=== PATIENT | male | born 1950 | race Caucasian/White ===

== ENCOUNTER → 2017-04-12 | Outpatient (CLI) | payer OTHER ==
[~2017-04-12] MED LIST: ACETAMINOPHEN325 M1 PO; ADULT LOW DOSE81 MG PO; AMARYL4 MG PO; AMBIEN 5 MG TABL5 M1 PO; ASPIR-TRIN325 MG PO; ATENOLOL 100MG100 MG PO; ATENOLOL 50MG T50 MG PO; AUGMENTIN 875875 MG PO; COREG6.25 MG PO; COZAAR 50 MG TA50 M1 PO; COZAAR 50 MG TA50 M2 PO; DULCOLAX5 MG PO; FLOMAX0.4 MG PO; HYDROCODONE-AP1 EAC6 PO; HYDROXYZINE HCL25 M1 PO; INSULIN; LOSARTAN-HCTZ1 EAC2; MAGNESIUM250 M1 PO; MELATONIN3 MG PO; METFORMIN HCL500 MG PO; MILK OF MA2400 MG/10 PO; NOVOLOG100 UNIT/1; PAXIL10 MG PO; RANITIDINE 150150 M1 PO; SIMVASTATIN40 MG PO; TOUJEO SOL300 UNIT/1 SQ; TOUJEO SOL300 UNIT/1 SUBQ; TRICOR145 MG PO; UNICOMPLEX M TA1 TA1 PO; ZOCOR 10 MG TAB10 MG PO
== END ==
LOC: M.RAD 10:55
DX: M51.34 Other intervertebral disc degeneration, thoracic region (principal); I65.23 Occlusion and stenosis of bilateral carotid arteries; I70.0 Atherosclerosis of aorta; M51.36 Other intervertebral disc degeneration, lumbar region

== ENCOUNTER → 2017-09-18 | Outpatient (CLI) | payer OTHER | LOC: M.RAD 13:26 | DX: R63.4 Abnormal weight loss (principal); R10.9 Unspecified abdominal pain; Z87.891 Personal history of nicotine dependence ==

== ENCOUNTER 2017-12-14 19:00 | Inpatient (IN) | payer OTHER ==
[~2017-12-14] VITALS: Ht 175.3 cm; Wt 101.7 kg
--- NOTE | ~2017-12-14 | PROC ---
[address] [address] PROCEDURE REPORT Name: JENNY RANKIN Room: [address] ADM IN M.R.#: [id number] Admission: 12/14/17 Attend Phys: Elda Abbott Discharge: Date of : 46 Report #: [id number] THIS REPORT FOR: //name// For GI report, please see the Provation report in Perceptive 7 content. By: 1004Medical Records Staff MEHDI /WINDY
[~2017-12-14 19:00] MED LIST changes: -ACETAMINOPHEN325 M1 PO; -ADULT LOW DOSE81 MG PO; -COREG6.25 MG PO; -COZAAR 50 MG TA50 M1 PO; -DULCOLAX5 MG PO; -HYDROCODONE-AP1 EAC6 PO; -MILK OF MA2400 MG/10 PO
[2017-12-14 19:09] VITALS: BP 103/61
[2017-12-14] MEDS ORDERED: METFORMIN HCL500 MG PO (19:15)
[2017-12-14 19:30] LABS: ABSOLUTE BASOPHILS 0.1 thou/uL (0.0-0.2); ABSOLUTE EOSINOPHILS 0.1 thou/uL (0.0-0.7); ABSOLUTE LYMPHOCYTES 1.2 thou/uL (0.8-5.3); ABSOLUTE MONOCYTES 0.6 thou/uL (0.0-1.2); ABSOLUTE NEUTROPHILS 4.6 thou/uL (1.6-8.1); EOSINOPHILS 1.4 %; HEMATOCRIT 20.5 % (42.0-52.0); LYMPHOCYTES 17.8 %; MCH 20.5 pg (26.0-34.0); MCV 66.2 fL (80.0-100.0); MONOCYTES 9.1 %; NUCLEATED RBCS 0 /100WBC; PLATELET COUNT* 174 thou/uL (150-400); POLYS 70.7 %; RDW-CV 18.9 % (10.5-14.5); WBC 6.5 thou/uL (4.0-11.0)
[2017-12-14 19:32] LABS: HEMOGLOBIN 6.4 gm/dL (14.0-18.0)
[2017-12-14 19:37] LABS: CALCIUM 8.3 mg/dL (8.5-10.1); CREATININE 1.5 mg/dL (0.6-1.3); POTASSIUM 4.7 mmol/L (3.5-5.1)
[2017-12-14 19:39] LABS: PROTIME 10.5 Seconds (9.20-11.50)
[2017-12-14 19:48] LABS: ALBUMIN 3.3 g/dL (3.4-5.0); TOTAL BILIRUBIN 0.3 mg/dL (<0.1-1.0); TOTAL PROTEIN 7.6 g/dL (6.4-8.2); TROPONIN-I LEVEL 0.07 ng/mL (<0.06)
[2017-12-14 19:51] LABS: PLATELET ESTIMATE ADEQUATE
[2017-12-14 19:52] LABS: ANISOCYTOSIS 2+; HYPOCHROMASIA 1+; MICROCYTES 3+
[2017-12-14 19:53] LABS: POLYCHROMASIA Occasional
[2017-12-14 21:28] LABS: % SATURATION 2 % (20-39); IRON 9 ug/dL (50-175)
[2017-12-14 22:10] VITALS: BP 108/63
[2017-12-14 22:30] VITALS: BP 100/65; BP 106/58; BP 119/70; BP 91/55; BP 99/65
[2017-12-15] VITALS (7 sets, daily range): BP systolic 12–128; BP diastolic 50–88
[2017-12-15 01:58] LABS: HEMATOCRIT 22.8 % (42.0-52.0); HEMOGLOBIN 7.1 gm/dL (14.0-18.0); MCH 21.4 pg (26.0-34.0); MCHC 31.2 g/dL (28.0-37.0); MCV 68.6 fL (80.0-100.0); MPV 10.6 fl. (7.2-11.1); RBC 3.33 mil/uL (4.50-6.00); RDW-CV 20.9 % (10.5-14.5); WBC 7.8 thou/uL (4.0-11.0)
[2017-12-15 02:21] LABS: ALBUMIN 3.4 g/dL (3.4-5.0); CALCIUM 8.5 mg/dL (8.5-10.1); CREATININE 1.6 mg/dL (0.6-1.3); POTASSIUM 4.9 mmol/L (3.5-5.1); TOTAL BILIRUBIN 0.4 mg/dL (<0.1-1.0); TOTAL PROTEIN 7.2 g/dL (6.4-8.2)
--- NOTE | 2017-12-15 07:55 | NUR ---
PT TO FLOOR APROX 2200 AND ASSUMED CARE. PT TO FLOOR WITH ORDER FOR BLOOD. REDRAW FOR BLOOD WAS CRITICAL. PROVIDER NOTIFIED NEW ORDERS RECIEVED. FIRST OF 2 BAGS OF BLOOD CURNTLY HANGING. VITALS WNL. SEE MAR. SEE CHARTING. FALL PRECAUTIONS IN PLACE. HOURLY ROUNDING FOR SAFETY.
--- NOTE | 2017-12-15 10:52 | NUR ---
RECEIVED REPORT FROM WILL AND ASSUMED CARE OF PT @ 8827.PT IS A/O,VSS,TRACING SR ON THE MONITOR.LUNG SOUNDS ARE CLEAR.LAST BM WAS TODAY.IV PATENT WITH BLOOD INFUSING PER ORDERS.PT IS CALM AND COOPERATIVE WITH NO C/O PAIN AT TIME OF ASSESSMENT.PT UP WITH SBA TO BATHROOM.LEFT RESTING IN BED WITH CALL LIGHT AND FALL PRECAUTIONS IN PLACE. WILL CONTINUE TO MONITOR.
--- NOTE | 2017-12-15 14:50 | NUR ---
MET WITH PT TO DISCUSS HOME SITUATION/DC PLANNING. PT LIVES , USES CANE AND IS INDEPENDENT AND ACTIVE. HE FOLLOWS WITH PCP DR CRUZ IN [place]. HASN'T HAD HH. VOICED THAT HE HAD CONSIDERED IT TO ASSIST WTIH HIS PILLS, BUT STATES CAN ASSIST HIM. DENIES DC NEEDS, HOPES TO GO HOME SOON.
--- NOTE | 2017-12-15 15:09 | EKG ---
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 : 1950 Requested By: Unique Palumbo Order Number: [id number] MD: Justus Acharya Measurements Intervals [place] Rate: 84 P: 53 DC: 153 QRS: 54 QRSD: 108 T: -33 QT: 378 QTc: 447 Interpretive Statements Sinus rhythm Inferior infarct, age indeterminate Compared to ECG 09/04/2016 20:06:42 No significant changes Electronically Signed On 12-15-2017 15:09:10 CDT by Justus Acharya [email or web address] <ELECTRONICALLY SIGNED> By: Kareem Acharya MD, [facility] 12/15/17 1509 15 15 Kareem Acharya MD, [facility] /EPI
--- NOTE | 2017-12-15 17:38 | NUR ---
VSS,CARDIAC MONITORING ON WITH NO CHANGES THIS SHIFT.PT RECEIVED UNIT OF BLOOD AND IV ANTIBIOTICS.NO C/O PAIN.PT TOLERATING HEART HEALTHY DIET.PT INFORMED OF PLAN OF CARE AND COMMUNICATES UNDERSTANDING.PT AMBULATED TO BATHROOM WITH ASSIST OF ONE.HOURLY ROUNDING COMPLETED FOR PT SAFETY.CALL LIGHT AND FALL PRECAUTIONS IN PLACE.WILL CONTINUE TO MONITOR FOR DURATION OF SHIFT.
[2017-12-16] VITALS (7 sets, daily range): BP systolic 89–154; BP diastolic 52–81
[2017-12-16 05:01] LABS: CHOLESTEROL 143 mg/dL (<200); HDL CHOLESTEROL 38 mg/dL (>40); LDL CHOLESTEROL 56 mg/dL (<100); NT-PRO BRAIN NAT PEPTIDE 1947 pg/mL (<300); TC:HDL 3.8 Ratio (Not establshd); TRIGLYCERIDE 249 mg/dL (<150); VLDL 50 mg/dL (<40)
[2017-12-16 05:04] LABS: SERUM ASSESSMENT Clear
--- NOTE | 2017-12-16 05:43 | NUR ---
ASSUMED CARE OF PT AFTER REPORT AT 1930. PT A&OX4. VSS. PHYSICAL ASSESSMENT COMPLETED AND CHARTED. PT ON RA WITH 96% O2 SAT. PT TRACING SR ON TELE. PT UP WITH 1 ASSIST TO TOILET. PT C/O OF DIFFICULTY OF BREATHING, CRACKLES & WHEEZING AUSCULTATED. PT STATED HE FEELS LIKE DROWNING- INFORMED DR NICE WITH NEW ORDERS. HOOKED TO O2 AT 3L WITH 94% O2 SAT. MEDS GIVEN PER MAY. HOURLY ROUNDING OBSERVED. CALL LIGHT WITHIN REACH. BED IN LOW POSITION.
--- NOTE | 2017-12-16 08:36 | NUR ---
RECEIVED REPORT FROM BALBIR AND ASSUMED CARE OF PT @ 4900.PT IS A/O,VSS,TRACING SR ON THE MONITOR.LUNG SOUNDS ARE COARSE.O2 @ 2L NC.LAST BM WAS YESTERDAY.IV PATENT WITH IV FLUIDS INFUSING PER ORDERS. PT IS CALM AND COOPERATIVE WITH NO C/O PAIN.UP WITH ONE ASSIST TO BATHROOM OR URINAL.PT LEFT RESTING ON EDGE OF BED WITH CALL LIGHT AND FALL PRECAUTIONS IN PLACE.WILL CONTINUE TO MONITOR.
--- NOTE | 2017-12-16 13:57 | EKG ---
[place] [address] ELECTROCARDIOGRAM REPORT Name: JENNY RANKIN Room: [address] ADM IN M.R.#: [id number] Admission: 12/14/17 Attend Phys: Elda Abbott Discharge: Date of : 46 Report #: [id number] THIS REPORT FOR: //name// 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 : 1950 Requested By: Kareem Acharya Order Number: [id number] Reading MD: Justus Acharya Measurements Intervals [place] Rate: 84 P: 65 IA: 160 QRS: 79 QRSD: 107 T: -34 QT: 380 QTc: 450 Interpretive Statements Sinus rhythm Nonspecific repol abnormality, diffuse leads Compared to ECG 12/14/2017 19:16:51 Early repolarization now present Myocardial infarct finding no longer present Electronically Signed On 12-16-2017 13:57:09 CDT by Justus Acharya [email or web address] <ELECTRONICALLY SIGNED> By: Kareem Acharya MD, [facility] 12/16/17 1357 1305 1305 Kareem Acharya MD, [facility] /EPI
--- NOTE | 2017-12-16 13:58 | EKG ---
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
--- NOTE | 2017-12-16 17:49 | NUR ---
VSS,CARDIAC MONITORING IN PLACE RUNNING SR WITH APCS.DR DALTON ON FLOOR AT TIME OF DISCOVER AND ASSESSED RHYTHM.NEW ORDERS FOR BREATHING TREATMENTS TO BE CHANGED.PT REMAINS ON 3L O2 NC.NO C/O PAIN.IF ANTIBIOTICS GIVEN.NPO AT MIDNIGHT FOR STRESS IN AM.PT INFORMED OF PLAN OF CARE AND COMMUNICATES UNDERSTANDING.PT SHOWERED IN BIG SHOWER ROOM.ISOLATION MAINTAINED.CDIFF PENDING.HOURLY ROUNDING COMPLETED FOR PT SAFETY.CALL LIGHT AND FALL PRECAUTIONS IN PLACE.WILL CONTINUE TO MONITOR.
[2017-12-17 04:00] VITALS: BP 102/50
--- NOTE | 2017-12-17 05:18 | NUR ---
ASSUMED CARE OF PT AFTER REPORT AT 1930. VSS. PHYSICAL ASSESSMENT COMPLETED AND CHARTED. PT ON NC AT 3L WITH 99% O2 SAT. PT TRACING SR/AFIB ON TELE. PT UP STANDBY ASSIST TO TOILET. PT INSTRUCTED ON NPO FOR STRESS TEST TODAY. COMMUNICATES UNDERSTANDING. C. DIFF RESULT CAME NEGATIVE. HOURLY ROUNDING OBSERVED. CALL LIGHT WITHIN REACH.
--- NOTE | 2017-12-17 08:15 | NUR ---
PT RESTING IN BED, APPEARS ALERT O X 4M DENIES CHEST PAIN, SOB, STATES SOME CHRONIC BLE NEUROPATHY PAIM , PT IS NPO FOR CARDIOLOGY STRESS TEST
[2017-12-17 08:16] VITALS: BP 124/67
[2017-12-17 12:00] VITALS: BP 117/60
[2017-12-17 16:00] VITALS: BP 123/58
--- NOTE | 2017-12-17 16:13 | EKG ---
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: [facility] : 1950 Requested By: Jarret Russell Order Number: [id number] MD: Jenny Ann Measurements Intervals [place] Rate: 86 P: OR: QRS: 53 QRSD: 108 T: -23 QT: 386 QTc: 462 Interpretive Statements Atrial fibrillation Inferior infarct, age indeterminate Compared to ECG 12/15/2017 13:10:08 Sinus rhythm no longer present Myocardial infarct finding still present Electronically Signed On 12-17-2017 16:12:58 CDT by Jenny Ann [email or web address] <ELECTRONICALLY SIGNED> By: Jenny Ann MD, FAC 12/17/17 1612 1842 184 Jenny Ann MD, [facility] /EPI
--- NOTE | 2017-12-17 17:21 | 2DMMODE ---
[place] [address] 2 D/M-MODE ECHOCARDIOGRAM Name: JENNY RANKIN Room: [address] IN [facility].#: [id number] Admission: 12/14/17 Attend Phys: Jarret Russell Discharge: Date of : 46 Date of Service: 12/17/17 1641 Report #: [id number] THIS REPORT FOR: //name// APPROVED REPORT Study performed: 12/17/2017 15:41:39 EXAM: Comprehensive 2D, Doppler, and color-flow Echocardiogram Patient Location: In-Patient Room #: [facility] Status: routine BSA: 2.12 HR: 83 bpm BP: 124/67 mmHg Other Information Study Quality: Good Indications Dyspnea 2D Dimensions IVSd: 13.85 (7-11mm) LVOT Diam: 20.27 (18-24mm) LVDd: 50.00 mm PWd: 11.67 (7-11mm) Ascending Ao: 33.02 (22-36mm) LVDs: 27.91 (25-40mm) Aortic Root: 27.81 mm Volumes Left Atrial Volume (Systole) LA ESV Index: 16.80 mL/m2 Aortic Valve AoV Peak Moo.: 1.71 m/s AO Peak Gr.: 11.71 mmHg LVOT Max P.69 mmHg AO Mean Gr.: 6.58 mmHg LVOT Mean P.40 mmHg LVOT Max V: 1.19 m/s AO V2 VTI: 26.36 cm LVOT Mean V: 0.69 m/s SANDRA (VTI): 2.67 cm2 LVOT V1 VTI: 21.81 cm Mitral Valve E/A Ratio: 1.10 MV Decel. Time: 167.83 ms MV E Max Moo.: 0.76 m/s MV PHT: 48.67 [place] [address] 2 D/M-MODE ECHOCARDIOGRAM Name: JENNY RANKIN Room: [address] IN .R.#: [id number] Admission: 12/14/17 Attend Phys: Jarret Russell Discharge: Date of : 46 Date of Service: 12/17/17 1641 Report #: [id number] MVA (PHT): 4.52 cm2 TDI E/Lateral E': 6.33 E/Medial E': 9.50 Medial E' Moo.: 0.08 m/s Lateral E' Moo.: 0.12 m/s Pulmonary Valve PV Peak Moo.: 1.04 m/s PV Peak Gr.: 4.34 mmHg Tricuspid Valve RAP Estimate: 5.00 mmHg TR Peak Gr.: 25.23 mmHg RVSP: 30.23 mmHg PA Pressure: 30.23 mmHg Left Ventricle The left ventricle is normal size. There is normal LV segmental wall motion. Mild concentric left ventricular hypertrophy. Left ventricular systolic function is normal. The left ventricular ejection fraction is within the normal range. LVEF is 60-65%. The left ventricular diastolic function is normal. Right Ventricle The right ventricle is normal size. The right ventricular systolic function is normal. Atria The left atrium size is normal. The right atrium size is normal. Aortic Valve Mild aortic valve sclerosis. No aortic regurgitation is present. There is no aortic valvular stenosis. Mitral Valve The mitral valve is normal in structure. Trace mitral regurgitation. No evidence of mitral valve stenosis. Tricuspid Valve The tricuspid valve is normal in structure. Mild tricuspid regurgitation. Pulmonic Valve The pulmonary valve is normal in structure. [place] [address] 2 D/M-MODE ECHOCARDIOGRAM Name: JENNY RANKIN Room: [address]#: [id number] Admission: 12/14/17 Attend Phys: Jarret Russell Discharge: Date of : 46 Date of Service: 12/17/17 1641 Report #: [id number] Great Vessels The aortic root is normal in size. IVC is normal in size and collapses >50% with inspiration. Pericardium There is no pericardial effusion. <Conclusion> Mild concentric left ventricular hypertrophy. Left ventricular systolic function is normal. The left ventricular ejection fraction is within the normal range. LVEF is 60-65%. The right ventricle is normal size. The left atrium size is normal. Mild aortic valve sclerosis. No aortic regurgitation is present. There is no aortic valvular stenosis. The mitral valve is normal in structure. Trace mitral regurgitation. The tricuspid valve is normal in structure. IVC is normal in size and collapses >50% with inspiration. There is no pericardial effusion. There is normal LV segmental wall motion. The left ventricle is normal size. <ELECTRONICALLY SIGNED> By: Jenny Ann MD, FACC 12/17/171640 40 40 Jenny Ann MD, FACC /INF
--- NOTE | 2017-12-17 17:51 | CARDNUC ---
[place] [address] CARDIAC NUCLEAR IMAGING REPORT Name: JENNY RANKIN Room: [address] IN [facility]#: [id number] Admission: 12/14/17 Attend Phys: Jarret Russell Discharge: Date of : 46 Date of Service: 12/17/17 1751 Report #: [id number] THIS REPORT FOR: //name// APPROVED REPORT Study performed: 12/15/2017 12:39:00 Indication: Dyspnea, , Fatigue Patient Location: In-Patient Room #: [facility] Stress Tech: Rafaela Owens Stress Nurse: Elizabeth Maravilla RN Ht: 5 ft 9 in Wt: 213 lbs BSA: 2.12 m2 BMI: 31.45 Medical History Medical History: [place], CAD, PCI, , Fatigue, SOB, HTN, Hyperlipidemia, Diabetes Medications: LOSARTAN, ASA 81 MG, ATORVASTATIN, ATENOLOL Allergies: No known drug allergies Cardiac Risk Factors: Age, HTN, Hyperlipidemia, DM, Past Smoker, FHX of CAD Previous Cardiac Procedures: PCI, Myocardial infarction Pretest Chest Pain Characteristics: No chest pain Exercise History: Sedentary Physical Disabilities: Legs, Back Meds Held (24 hrs): ATENOLOL Resting Data Rest SPECT myocardial perfusion imaging was performed in supine position 45 minutes following the intravenous injection of 11.1 mCi of Tc-99m Sestamibi. Time of rest injection: 1000 Date: 12/17/2017 Administration Route: IV Administration Site: Right AC Pharmacologic Stress Pharmacologic stress test was performed by injecting Regadenoson 0.4 mg IV push over 10-15 seconds immediately followed by the intravenous injection of 35.4 mCi of Tc-99m Sestamibi. Time of stress injection: 1150 Date: 12/17/2017 Administration Route: IV Administration Site: Right AC Gated Stress SPECT was performed 45 [place] [address] CARDIAC NUCLEAR IMAGING REPORT Name: JENNY RAKNIN Room: [address]#: [id number] Admission: 12/14/17 Attend Phys: Jarret Russell Discharge: Date of : 46 Date of Service: 12/17/17 175 Report #: [id number]. The images were gated to evaluate regional wall motion and calculate left ventricular ejection fraction. Stress Test Details Stress Test: Pharmacologic stress testing performed using 0.4 mg of regadenoson per 5 mL given IV over 10 seconds. Reason for pharmacologic stress test: physical limitation. HR Max Heart Rate (APMHR): 151 bpm Resting HR: 79 bpm Target HR (85% APMHR): 128 bpm Max HR Achieved: 96 bpm % of APMHR: 63 Recovery HR: 92 bpm BP Resting BP: 124/70 mmHg Recovery BP: 127/66 mmHg ECG Resting ECG: Sinus Rhythm, nonspecific ST-T abnormalities Stress ECG: Sinus Rhythm, nonspecific ST-T abnormalities ST Change: None Arrhythmia: None Recovery ECG: Sinus Rhythm, nonspecific ST-T abnormalities Recovery ST Change: None Recovery Arrhythmia: None Clinical Reason for Termination: Completed protocol Stress Symptoms: Dizziness, Nausea, Weakness Exercise duration: 0 min 0 sec Exercise capacity: 1.00 METs Patient had mild atypical symptoms with Lexiscan infusion. No worrisome symptoms to suggest angina. Nurse Comments PATIENT STATED HE WAS NOT ABLE TO WALK ON TREADMILL R/T GENERALIZED WEAKNESS, BACK AND LEG PROBLEMS, UNSTEADY ON FEET. PATIENT TOLERATED SITTING STRESS WELL REPORTING MILD NAUSEA AND LIGHTHEADEDNESS WHICH WAS RESOLVED WITH CAFFEINE. PT ASSISTED TO AND FROM WHEELCHAIR WITH IV POLE AND FLUIDS. PT STABLE AT END OF TEST [place] [address] CARDIAC NUCLEAR IMAGING REPORT Name: JENNY RANKIN Room: [address] IN [facility]#: [id number] Admission: 12/14/17 Attend Phys: Jarret Russell Discharge: Date of : 46 Date of Service: 12/17/17 1751 Report #: [id number] Stress ECG Conclusion The baseline 12-lead EKG shows sinus rhythm with some inverted T waves in the inferior leads. No significant ST segment deviations were noted. EKGs obtained during and post Lexiscan stress show no significant ST or T wave changes when compared baseline. There were no stress-induced arrhythmias. Study Quality Study: Good Artifact: No artifact Study Data At rest, the left ventricular ejection fraction was 64%.. Post stress, the left ventricular ejection was 68%.. TID = 0.87. Perfusion Perfusion images show a moderate size severe intensity fixed defect involving the basal to mid inferior wall consistent with prior infarct. No reversible defects were identified. Wall Motion There is akinesis of the basal portion of the inferior wall. Overall left ventricular systolic function is fairly well-preserved. Nuclear Conclusion ECG Findings: negative for ischemia Clinical Findings: negative for ischemia Nuclear Findings: negative for ischemia Exercise Capacity: not assessed Left Ventricular Function: preserved Risk Study: low Myocardial perfusion images show evidence of prior inferior wall infarct with no inducible ischemia. Overall left ventricular systolic function is fairly well-preserved. This is a low risk study. <Conclusion> The baseline 12-lead EKG shows sinus rhythm with some inverted T waves in the inferior leads. No significant ST segment deviations were noted. EKGs obtained during and post Lexiscan stress show no significant ST or T wave changes when compared baseline. There were no stress-induced arrhythmias. <ELECTRONICALLY SIGNED> By: Ethan Bloom MD, FACC 12/17/171750 50 50 Ethan Bloom MD, FACC /INF
--- NOTE | 2017-12-17 18:24 | NUR ---
pt resting in bed, without C/O, pt had cardiac stress test ,, magnesium replaced, remains o x 4. denies chest pain, SOB, pain or discomfort
[2017-12-17 20:00] VITALS: BP 122/67
[2017-12-18] VITALS (7 sets, daily range): BP systolic 104–132; BP diastolic 51–102
--- NOTE | 2017-12-18 05:11 | NUR ---
ASSUMED CARE OF PT AFTER REPORT AT 1930. PT A&OX4. VS. PHYSICAL ASSESSMENT COMPLETED AND CHARTED. PT ON RA WITH 94% O2 SAT . PT TRACING SR ON TELE. PT UP STANDBY ASSIST. INSTRUCTED ON NPO EXCEPT MEDS WITH SIPS OF LIQUID ORDERED. COMMUNICATES UNDERSTANDING. DENIES ANY PAIN OR DISCOMFORT. MEDS GIVEN PER MAR. HOURLY ROUNDING OBSERVED. CALL LIGHT WITHIN REACH.
[2017-12-18 05:23] LABS: ABSOLUTE EOSINOPHILS 0.2 thou/uL (0.0-0.7); ABSOLUTE LYMPHOCYTES 1.3 thou/uL (0.8-5.3); ABSOLUTE MONOCYTES 0.6 thou/uL (0.0-1.2); ABSOLUTE NEUTROPHILS 2.9 thou/uL (1.6-8.1); BASOPHILS 0.9 %; EOSINOPHILS 3.3 %; HEMATOCRIT 25.3 % (42.0-52.0); LYMPHOCYTES 26.4 %; MCH 22.5 pg (26.0-34.0); MCHC 31.8 g/dL (28.0-37.0); MCV 70.7 fL (80.0-100.0); MONOCYTES 12.5 %; MPV 9.6 fl. (7.2-11.1); NUCLEATED RBCS 0 /100WBC; PLATELET COUNT* 128 thou/uL (150-400); POLYS 56.9 %; RBC 3.57 mil/uL (4.50-6.00); RDW-CV 22.5 % (10.5-14.5); WBC 5.1 thou/uL (4.0-11.0)
[2017-12-18 05:40] LABS: CALCIUM 8.5 mg/dL (8.5-10.1); CREATININE 1.3 mg/dL (0.6-1.3); POTASSIUM 4.4 mmol/L (3.5-5.1)
[2017-12-18 06:01] LABS: PLATELET ESTIMATE DECREASED
[2017-12-18 06:02] LABS: ANISOCYTOSIS 1+; HYPOCHROMASIA 2+; MICROCYTES 1+; OVALOCYTES 1+; POLYCHROMASIA 1+
[2017-12-18 06:03] LABS: POIKILOCYTOSIS 1+
[2017-12-18 13:48] LABS: HEMATOCRIT 26.5 % (42.0-52.0); HEMOGLOBIN 8.3 gm/dL (14.0-18.0); MCH 22.2 pg (26.0-34.0); MCHC 31.4 g/dL (28.0-37.0); MCV 70.8 fL (80.0-100.0); MPV 8.7 fl. (7.2-11.1); RBC 3.74 mil/uL (4.50-6.00); RDW-CV 22.6 % (10.5-14.5); WBC 4.6 thou/uL (4.0-11.0)
--- NOTE | 2017-12-18 19:00 | NUR ---
PT HAS BEGUN BOWEL PREP FOR COLONOSCOPY IN AM.
[2017-12-19] VITALS (7 sets, daily range): BP systolic 121–156; BP diastolic 62–89
--- NOTE | 2017-12-19 04:52 | NUR ---
ASSUMED CARE OF PT AFTER REPORT AT 1930. PT A&OX4. VSS. PHYSICAL ASSESSMENT COMPLETED AND CHARTED. PT ON RA WITH 99% O2 SAT. PT TRACING SR ON TELE. PT UP ADLIB TO TOILET. DENIES ANY PAIN OR DISCOMFORT. INSTRUCTED NPO POST MIDNIGHT FOR EGD & COLONOSCOPY. COMMUNICATES UNDERSTANDING. HOURLY ROUNDING OBSERVED. CALL LIGHT WITHIN REACH. BED IN LOW POSITION.
--- NOTE | 2017-12-19 19:07 | NUR ---
NEW IV STARTED IN R FA AFTER PREVIOUS IV BEGAN LEAKING. PT AGREEABLE TO MOST INTERVENTIONS. PT AT TIMES ANGRY AND DEMANDING. PT DENIES PAIN. TOLERATED DIET WITHOUT C/O. NO S/S BLEEDING TODAY. PT ABLE TO MAKE NEEDS KNOWN, CALL LIGHT IN REACH
[2017-12-20] VITALS: BP 128/52
[2017-12-20 04:00] VITALS: BP 129/54
[2017-12-20 05:00] LABS: HEMATOCRIT 24.8 % (42.0-52.0); MCH 22.3 pg (26.0-34.0); MCHC 32.1 g/dL (28.0-37.0); MCV 69.5 fL (80.0-100.0); MPV 8.6 fl. (7.2-11.1); RBC 3.57 mil/uL (4.50-6.00); RDW-CV 22.6 % (10.5-14.5); WBC 5.6 thou/uL (4.0-11.0)
[2017-12-20 05:07] LABS: ALBUMIN 2.9 g/dL (3.4-5.0); CALCIUM 8.6 mg/dL (8.5-10.1); MAGNESIUM 1.6 mg/dL (1.8-2.4); PHOSPHORUS* 3.7 mg/dL (2.5-4.9); POTASSIUM 3.8 mmol/L (3.5-5.1); TOTAL BILIRUBIN 0.2 mg/dL (<0.1-1.0); TOTAL PROTEIN 6.4 g/dL (6.4-8.2)
--- NOTE | 2017-12-20 05:51 | NUR ---
ASSUMED CARE OF PT AFTER REPORT AT 1930. PT A&OX4. VSS. PHYSICAL ASSESMENT COMPLETED AND CHARTED. PT ON RA WITH 95% O2 SAT. PT TRACING SR ON TELE. PT UP ADLIB TO TOILET. INSTRUCTED NPO POST MIDNIGHT FOR SCHEDULED XRAY BARIUM ENEMA. COMMUNICATES UNDERSTANDING. DENIES ANY PAIN OR DISCOMFORT. MAGNESIUM IS 1.6. MEDS GIVEN PER ELECTROLYTE PROTOCOL. CALL LIGHT WITHIN REACH. BED IN LOW POSITION.
[2017-12-20 08:55] VITALS: BP 126/75
--- NOTE | 2017-12-20 11:35 | NUR ---
SOCIAL SECURITY SPECIALIST SPOKE TO THE PATIENT TO DISCUSS DISCHARGE PLANNING NEEDS. PAIENT INFORMS THAT HE STILL PLANS TO RETURN HOME AT D/C, AND IS STILL UNSURE IF HE WILL NEED HH. NURSING INFORMS THAT PATIENT MAY HAVE SURGERY TOMORROW PENDING THE RESULTS OF THE BARIUM EMEMA. CM WILL REMAIN AVIALABLE TO ASSIST AND FOLLOW NEEDED.
[2017-12-20 12:59] VITALS: BP 129/71
--- NOTE | 2017-12-20 14:44 | CON ---
[address] [address] CONSULTATION Name: JENNY RANKIN Room: [address] ADM IN M.R.#: [id number] Admission: 12/14/17 Attend Phys: Elda Abbott Discharge: Date of : 46 Report #: [id number] THIS REPORT FOR: //name// CC: Manolo Brown MD FAM physician/PCP Jarret Russell DATE OF SERVICE: 12/15/2017 REFERRING PHYSICIAN: Jarret Russell MD REASON FOR CONSULTATION: Severe anemia. IMPRESSION: 1. Iron deficient anemia of uncertain etiology - evaluate upper and lower gastrointestinal tract sources for the same. 2. Shortness of breath with associated right lower lobe pneumonia. 3. Coronary artery disease with previous stents being placed in the past with a need for further evaluation. 4. Elevated troponin, likely related to anemia and demand from the same. RECOMMENDATIONS: 1. Before proceeding with any endoscopic studies, the patient needs to complete his cardiovascular evaluation including his stress echo and stress test, echocardiogram, etc, scheduled on Sunday. 2. If cardiovascular evaluation is okay or intervention is going to need with cardiac catheterization with possible stent placement and potentially the possibility of beginning on a blood thinner, he will need to proceed with upper and lower endoscopy to risk stratify him his ability to be on the same. 3. We will coordinate the patient's evaluation with cardiology and likely these studies will be done on Sunday if okay with cardiology. 4. We will hold off beginning on any form of oral iron replacement at this time until after his endoscopic studies have been performed, as they were interfering with the adequacy of the bowel preparation and can mimic melena. I have discussed these plans with the patient as well and he is agreeable to the same. HISTORY OF PRESENT ILLNESS: The patient is a pleasant 67-year-old white male with history of coronary artery disease and diabetes who was admitted to the hospital because of problems with shortness of breath and the like. He was found to have hemoglobin on admission of only 6.4 with microcytic indices. He denies any complaints of any dysphagia, odynophagia, postprandial pain or any major problem with his bowels or bowel frequency. He does have occasional left lower quadrant pain. He denies any black stools or tarry stools. He has not had any bleeding. He has undergone previous studies of his upper or lower GI tract in the past. He says he has history of gastric ulcer, but does not recall ever having an endoscopy or an upper GI series and [place] [address] CONSULTATION Name: MASSIELJENNY Abril Room: [address] IN [facility]#: [id number] Admission: 12/14/17 Attend Phys: Elda Abbott Discharge: Date of : 46 Report #: [id number] he had an ulcer. He has been maintained on chronic ranitidine for the same. He was admitted to hospital and has received a total of 3 units of packed red cells for symptomatic anemia and hemoglobin of 6.4. He denies taking any nonsteroidals whatsoever and only takes Tylenol. He is not on any blood thinners except for a baby aspirin for his heart. ALLERGIES: None. MEDICATIONS: Insulin, losartan/hydrochlorothiazide, metformin, atenolol, aspirin, ranitidine, and zolpidem. PAST MEDICAL HISTORY: Hypertension, coronary artery disease with previous stent placement back in the , history of hernia surgery, and back surgery as well. SOCIAL HISTORY: The patient does not smoke, previously smoked. Does not drink alcohol. FAMILY HISTORY: Negative for GI malignancy. PHYSICAL EXAMINATION: GENERAL: Revealed pleasant, pale 67-year-old gentleman who is awake and alert. CARDIOPULMONARY EXAMINATION: Revealed a regular rate and rhythm. LUNGS: Clear. ABDOMEN: Soft, not particularly tender. I cannot appreciate any organomegaly or masses. LABORATORY TESTS: From admission revealed a white count of 6.5, hemoglobin 6.4, platelet count 174,000. His MCV is 66.2 and RDW is 18.9. Differential is normal. Sodium 130, potassium 4.7, chloride 96, bicarbonate is 22, BUN is 24, creatinine 1.5 for GFR of 46. His blood sugar is 394. Total bilirubin 0.3, alkaline phosphatase is 65, AST is 11, ALT 14. His albumin is 3.3. Iron saturation is 2%, ferritin is 5. His B12 level is 619. DISCUSSION: At the present time, the patient has severe anemia with a baseline hemoglobin from August of last year, which revealed a hemoglobin of 14.2 with normocytic indices. His GFR at that time was only 43. He does have some element of chronic kidney disease. We will wait for cardiovascular evaluation [address] [address] CONSULTATION Name: JENNY RANKIN Room: [address] IN M.R.#: [id number] Admission: 12/14/17 Attend Phys: Elda Abbott Discharge: Date of : 46 Report #: [id number] to be completed and make room and proceed with endoscopic studies of his upper or lower GI tract while in the hospital. <ELECTRONICALLY SIGNED> By: Isaías Rizvi DO 12/20/17 [id number] Rizvi DO /nt
[2017-12-20 15:30] VITALS: BP 126/64
--- NOTE | 2017-12-20 18:25 | NUR ---
ASSESSMENT COMPLETED REFER TO COMPUTER CHARTING. BEAM SAW OPERATOR TRACKING SR. PATIENT RESTING IN BED AND REPORTING NO PAIN, NAUSEA OR SHORTNESS OF BREATH. BED IN LOW AND LOCKED POSITION. CALL LIGHT WITHIN REACH. IV FLUIDS INFUSING. FAMILY AT BEDSIDE. WILL CONTINUE TO MONITOR THIS SHIFT.
[2017-12-20 20:00] VITALS: BP 144/76
[2017-12-21] VITALS (8 sets, daily range): BP systolic 128–148; BP diastolic 63–77
--- NOTE | 2017-12-21 04:46 | NUR ---
ASSUMED CARE OF PT AFTER REPORT AT 1930. PT A&OX4. VSS. PHYSICAL ASSESSMENT COMPLETED AND CHARTED. PT ON RA WITH 95% O2 SAT. PT TRACING SR ON TELE. PT UP ADLIB TO TOILET. MAINTAINED ON NPO FOR SCHEDULED SURGERY TODAY. DENIES ANY PAIN, SOA OR DISCOMFORT. HOULRY ROUNDING OBSERVED. CALL LIGHT WITHIN REACH. BED IN LOW POSITION. BED ALARM ON.
[2017-12-21 09:47] LABS: HEMATOCRIT 26.3 % (42.0-52.0); HEMOGLOBIN 8.4 gm/dL (14.0-18.0); MCH 22.7 pg (26.0-34.0); MCHC 31.9 g/dL (28.0-37.0); MCV 71.3 fL (80.0-100.0); MPV 8.9 fl. (7.2-11.1); RBC 3.69 mil/uL (4.50-6.00); RDW-CV 23.6 % (10.5-14.5); WBC 3.6 thou/uL (4.0-11.0)
[2017-12-21 10:05] LABS: CALCIUM 8.9 mg/dL (8.5-10.1); POTASSIUM 3.8 mmol/L (3.5-5.1)
--- NOTE | 2017-12-21 10:34 | NUR ---
PT OFF UNIT TO OR.
--- NOTE | 2017-12-21 13:35 | NUR ---
Nutrition: Pt assessed for LOS. In surgery today for transverse colectomy. Has GI bleed. H/o PA, DM. Will remain NPO for now. Labs: BG 168, alb 2.9, Hgb 8.4. Wt: 214#. Will follow POC. Will follow diet order and po tolerance. Will follow up 12/24/17.
[2017-12-21 18:44] LABS: MAGNESIUM 1.3 mg/dL (1.8-2.4); PHOSPHORUS* 4.4 mg/dL (2.5-4.9)
--- NOTE | 2017-12-21 18:51 | NUR ---
PT RETURN TO ROOM 7. REPORT GIVEN AT BEDSIDE BY LITA NEVAREZ. PT HAS LAP SITES X 4 WITH ABDOM[address]AL BINER IN PLACE. IMPLANTED PRORT LEFT SUBCLAVIAN HAS DRESSING COVERING SITE. FORBES IS IN PLACE DRAINING CLEAR YELLOW URINE. PT REMAINS ON 3L NC. WILL GIVE REPORT TO SOCIAL STAFF WORKER SHORTLY.
[2017-12-22 00:02] VITALS: BP 119/64
--- NOTE | 2017-12-22 04:41 | NUR ---
Assumed care of patient at 1930. Full assessment completed and documented; hourly rounding performed for patient safety. Patient rested well throughout the night. 4 lap sites and abdominal binder intact. Patient's pain well controlled through PRN medications. All VSS. Patient remains on 3L NC. IVL infusing through right wrist IV. Left subclavian port dressing intact, no drainage noted. Leyva catheter patent; clear yellow urine noted. Patient tolerating clear liquids well. Fall precautions in place, bed alarm on at all times. Call light within patient's reach. Will continue to monitor.
[2017-12-22 05:00] VITALS: BP 111/68
[2017-12-22 05:34] LABS: ABSOLUTE BASOPHILS 0.1 thou/uL (0.0-0.2); ABSOLUTE LYMPHOCYTES 0.8 thou/uL (0.8-5.3); ABSOLUTE MONOCYTES 0.7 thou/uL (0.0-1.2); ABSOLUTE NEUTROPHILS 5.3 thou/uL (1.6-8.1); BASOPHILS 0.8 %; EOSINOPHILS 0.3 %; HEMOGLOBIN 7.5 gm/dL (14.0-18.0); LYMPHOCYTES 12.3 %; MCH 22.8 pg (26.0-34.0); MCHC 31.3 g/dL (28.0-37.0); MCV 72.8 fL (80.0-100.0); MONOCYTES 9.7 %; MPV 9.4 fl. (7.2-11.1); NUCLEATED RBCS 0 /100WBC; PLATELET COUNT* 114 thou/uL (150-400); POLYS 76.9 %; RDW-CV 23.1 % (10.5-14.5); WBC 6.9 thou/uL (4.0-11.0)
[2017-12-22 05:52] LABS: ALBUMIN 2.7 g/dL (3.4-5.0); CALCIUM 8.4 mg/dL (8.5-10.1); CREATININE 1.1 mg/dL (0.6-1.3); POTASSIUM 4.5 mmol/L (3.5-5.1); TOTAL BILIRUBIN 0.4 mg/dL (<0.1-1.0); TOTAL PROTEIN 6.1 g/dL (6.4-8.2)
[2017-12-22 08:10] VITALS: BP 119/71
--- NOTE | 2017-12-22 08:15 | NUR ---
ASSUMED CARE OF PATIENT AT 0730 AFTER REC'G REPORT FROM NOC RN. PT MOANING WITH MOVEMENT YET STATES HIS PAIN IS 7/10. PRN PAIN MED GIVEN PER MAY. PT A&oX4, ABLE TO COMMUNICATE NEEDS TO STAFF. ABDOMINAL BINDER IN PLACE. MED/SURG STATUS. ACTIVE BS, STATES HE IS PASSING FLATUS. SCD'S IN PLACE. CALL LIGHT IN REACH. ENCOURAGED INCENTIVE SPIROMETER, PT VOICED UNDERSTANDING OF RATIONALE FOR SPIROMETER.
--- NOTE | 2017-12-22 09:00 | NUR ---
OFFERED PT SELF-CARE BATH OR SHOWER. PT REFUSED STATING "I DON'T THINK SO. I JUST HURT SO BAD." PAIN MANAGEMENT GOALS DISCUSSED WITH PATIENT. WILL OFFER BATH OR SHOWER LATER IN SHIFT.
[2017-12-22 11:35] VITALS: BP 114/56
--- NOTE | 2017-12-22 11:56 | NUR ---
PT CALLED FOR ASSISTANCE. PT STATES "I FEEL LIKE I'M NOT GETTING ANY OXYGEN THROUGH THIS" POINTING TO HIS O2 TUBING. O2 IS SET AT 1L/MIN NC. O2 SAT CHECKED, 94%. REPOSITIONED PATIENT WITH ASSISTANCE OF DARION NIETO. PT STATES HE FEELS MORE COMFORTABLE NOW.
[2017-12-22 14:42] LABS: URINE BILIRUBIN NEGATIVE (Negative); URINE BLOOD 1+ (Negative); URINE CLARITY CLEAR; URINE COLOR YELLOW; URINE GLUCOSE-RANDOM 1+ (Negative); URINE KETONES NEGATIVE (Negative); URINE LEUKOCYTES-REFLEX 1+ (Negative); URINE NITRITE-REFLEX NEGATIVE (Negative); URINE PROTEIN TRACE (Negative); URINE UROBILINOGEN 0.2 E.U./dl (0.2-1.0)
[2017-12-22 14:57] LABS: BACTERIA-REFLEX 1-9 Few /HPF (None Seen); CASTS None Seen /LPF (None Seen); CRYSTALS None Seen /LPF (None Seen); SQUAMOUS 0-3 Few /LPF (0-3); URINE RBC 3-10 Few /HPF (0-2); URINE WBC-REFLEX 6-15 Few /HPF (0-5)
[2017-12-22 16:00] VITALS: BP 119/68
--- NOTE | 2017-12-22 18:55 | NUR ---
WENT TO ROOM FOR KITCHENHAND. REPOSITIONED PATIENT. BARRIER CREAM APPLIED TO GLUTEAL FOLDS FOR SMALL AREA OF BLANCHABLE, REDDENED SKIN. COMMUNICATED TO FLIGHT TECHNICIAN'S AND NOC RN THAT PT WILL NEED Q2 TURN UNTIL UP OOB CONSISTENTLY. PT PAIN BETTER CONTROLLED THIS EVENING. PT STATES PAIN IS 3/10 UPON REASSESSMENT THIS EVENING.
[2017-12-22 20:00] VITALS: BP 111/58
--- NOTE | 2017-12-22 22:22 | NUR ---
DOCTOR FULLBRIGHT NOTIFIED OF PATIENT TEMP., SEE ORDERS. ASKED DOCTOR ABOUT DC OF ANRDEI, DOCTOR TOLD NURSE TO WAIT TO DAY, SEE WHAT'S SURGERY SAY REGARDING THE MATTER.
[2017-12-23] VITALS: BP 105/64
[2017-12-23 07:45] VITALS: BP 137/56
--- NOTE | 2017-12-23 11:38 | EKG ---
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 : [id number] Requested By: Boy Driver Order Number: [id number] Dioni MD: Abilio Park Measurements Intervals [place] Rate: 109 P: AL: QRS: 56 QRSD: 106 T: 250 QT: 330 QTc: 445 Interpretive Statements Atrial fibrillation Inferoposterior infarct, recent Lateral leads are also involved Compared to ECG 12/16/2017 18:42:30 No significant changes Electronically Signed On 12-23-2017 11:38:08 CDT by Abilio Park [email or web address] <ELECTRONICALLY SIGNED> By: Abilio Park MD, [facility] 12/23/17 1138 [id number] Abilio Park MD, [facility] /EPI
[2017-12-23 12:00] VITALS: BP 96/63
[2017-12-23 15:51] VITALS: BP 126/74
--- NOTE | 2017-12-23 16:27 | NUR ---
ASSUMED PT CARE AT 0730, FULL ASSESMENT DONE CHARTED. PT A/O X4, ANXIOUS AT TIMES, PT IRRITABLE ABOUT BEING PLACED ON THE TELE MONITOR, EDUCATED ON REASON WHY, PT AFIB ON THE MONITOR THIS SHIFT. PT C/O PAIN IN LEFT SIDE OF ABDOMEN, BINDER IN PLACE, DRESSINGS TO ABD C/D/I, PTS BOTTOM RED WITH "SPLIT" IN THE CREASE OF THE BOTTOM. BARRIOR CREAM APPLIED. PT VERY WEAK, ASSIST OF 2 TO CHAIR, SAT IN CHAIR SEVERAL HOURS THIS AFTERNOON. BM THIS AFTERNNON WAS LOOSE, DARK AND HAD MUCUS WITH UNDIGESTED PILLS. NOTIFIED. MAG REPLACED, WAITING ON REDRAW RESULTS, PT TOLERATED CLEAR LIQUID DIET, STARTED ON FULL LIQUIDS. PT USES CALL LIGHT APPROPRIATLY, FALL PRECAUTIONS IN PLACE. WILL CONTINUE WITH PLAN OF CARE.
[2017-12-23 20:00] VITALS: BP 113/67
[2017-12-24] VITALS (7 sets, daily range): BP systolic 100–181; BP diastolic 57–81
--- NOTE | 2017-12-24 05:13 | NUR ---
PATIENT HAD MUTIPLE BOWEL MOVEMENTS THAT WERE LIQUID. PATIENT WAS ABLE TO USE BED SIDE COMMODE WITH ASSIST TIMES TWO. PATIENT WAS WEAK AND FATIGUED FROM MOVEMENT. DOCTOR CALLED REGARDING PATIENT'S HEART RATE, SEE ORDERS. FALL PRECAUTIONS IN PLACE, CALL LIGHT WITH IN REACH, HOURLY ROUNDING OBSERVED, BED ALARM ON. PATIENT DID NOT SHOW SIGNS OF DISTRESS, NO ACUTE CHANGES. PATIENT IS RESTING IN BED.
--- NOTE | 2017-12-24 10:39 | NUR ---
Nutrition: follow up note. Diet advanced to Full Liquids and pt is tolerating. Labs: alb 2.2, prealb 12.8, K+ 5.2, Na 131, BG 186. Wt is fluctuating 214-220#. Loose BMs. Mild risk. GOALS: continue advancing diet to Soft/Fiber Restricted, as tolerated.
--- NOTE | 2017-12-24 14:51 | NUR ---
Pt reports still feeling weak, Pt to work with therapy. Goal continues to be to return home at nm. CM following.
--- NOTE | 2017-12-24 18:14 | NUR ---
PT CARE ASSSUMED AT 0730. ALERT AND ORIENTED X4. SATURATION MAINTED AT 2L OF OXYGEN. CALL LIGHT WITHIN REACH. FALL PRECAUTIONS MAINTAINED. AFIB WITH PVCS RUNNING ON SAMPLE PATTERNMAKER. HAD BOWEL MOVEMENT. IV SITE CHANGED, 20G FOR CT PA. WILL CONTINUE TO MONITOR. TOLERATED SOFT DIET, NO NAUSEA STATED. DRESSING C/D/I. PT BOTTOM RED, BARRIER CREAM APPLIED. SAT ON BEDSIDE CHAIR FOR A WHILE. WILL CONTINUE TO MONITOR
--- NOTE | 2017-12-24 19:02 | NUR ---
THIS RN REVIEWED AND AGREES WITH THE CHARTING OF SARINA NEVAREZ.
--- NOTE | 2017-12-24 19:39 | NUR ---
PT AOX4. SATURATION MAINTAINED IN RA, 94%. HAD TWO PERIODS OF LOOSE STOOL. NO CHEST PAIN AND SOB. SPOUSE PRESENT AT BEDSIDE. PROGRESSING TOWARDS GOAL. SOFT DIET TOLERATED, NO NAUSEA. IV SITE CHANGED FO CTPA. DRESSING C/D/I. UP WITH ASSIST X 2 AND WALKER. AFIB WITH PVCS IN OUTSIDE SALESPERSON. PINK AREA NOTED AT BOTTOM WITH TEAR NEAR CREASE,
[2017-12-25] VITALS (7 sets, daily range): BP systolic 120–144; BP diastolic 68–88
[2017-12-25 05:08] LABS: ABSOLUTE BASOPHILS 0.1 thou/uL (0.0-0.2); ABSOLUTE EOSINOPHILS 0.2 thou/uL (0.0-0.7); ABSOLUTE LYMPHOCYTES 0.8 thou/uL (0.8-5.3); ABSOLUTE MONOCYTES 0.5 thou/uL (0.0-1.2); ABSOLUTE NEUTROPHILS 3.4 thou/uL (1.6-8.1); EOSINOPHILS 4.6 %; HEMOGLOBIN 7.5 gm/dL (14.0-18.0); LYMPHOCYTES 15.4 %; MCH 22.6 pg (26.0-34.0); MONOCYTES 10.4 %; MPV 9.5 fl. (7.2-11.1); NUCLEATED RBCS 0 /100WBC; PLATELET COUNT* 107 thou/uL (150-400); POLYS 68.6 %; RBC 3.29 mil/uL (4.50-6.00); RDW-CV 23.7 % (10.5-14.5); WBC 4.9 thou/uL (4.0-11.0)
[2017-12-25 05:17] LABS: CALCIUM 8.4 mg/dL (8.5-10.1); CREATININE 0.9 mg/dL (0.6-1.3); POTASSIUM 3.8 mmol/L (3.5-5.1)
--- NOTE | 2017-12-25 06:50 | NUR ---
PATIENT RESTED IN BED, NO ACUTE CHANGES. PATIENT DID NOT SHOW SIGNS OF DISTRESS. FALL PRECAUTIONS IN PLACE, CALL LIGHT WITH IN REACH, HOURLY ROUNDING OBSERVED.
--- NOTE | 2017-12-25 14:12 | NUR ---
TITLE SEARCH MANAGER SPOKE TO THE PATIENT AND SPOUSE TO DISCUSS SKILLED AT D/C. PATIENT AND SPOUSE IN AGREEMENT AND INFORM THAT THEY WOULD LIKE A SNF LIST. D/C CREATIVE STRATEGIST TO PROVIDE PATIENT WITH A SNF LIST, AND FOLLOW-UP WITH THE PATIENT TO DISCUSS DECISION. CM WILL REMAIN AVAILABLE TO ASSIST AND FOLLOW NEEDED.
--- NOTE | 2017-12-25 14:20 | NUR ---
PT CARE ASSUMED AT 0730. ALERT AND ORIENTED X4. SATURATION MAINTAINED IIN RA. CALL LIGHT WITHIN REACH AND FALL PRECAUTIONS MAINTAINED. AFLUTTER WITH BBB WITH PVCS RUNNING ON TELE MONITOR. DENIES SOB. STATES PAIN IN ABDOMEN, DEBNIES PAIN MEDICATION. ABDOMEN INCISION C/D/I. SAT ON BEDSIDE CHAIR FOR MOST OF THE TIME. WILL CONTINUE TO MONITOR.
--- NOTE | 2017-12-25 15:50 | NUR ---
Pt requested to speak with CM, CM faxed referral to [facility] [place] per Pt's request. Isabella from [facility] to home and meet with Pt tomorrow at noon. Following.
--- NOTE | 2017-12-25 17:21 | OP ---
[address] [address] OPERATIVE REPORT Name: JENNY RANKIN Room: [address] IN M.R.#: [id number] Admission: 12/14/17 Attend Phys: Elda Abbott Discharge: Date of : 46 Report #: [id number] THIS REPORT FOR: //name// CC: Manolo Tuvaluan Jarret Russell DICTATED BY: Dhruv Fernández DO DATE OF SERVICE: 12/21/2017 PREOPERATIVE DIAGNOSES: Transverse colon mass and need for chemo port placement. POSTOPERATIVE DIAGNOSES: Transverse colon mass and need for chemo port placement. SURGEON: Pippa Manuel DO. SENIOR PHARMACY TECHNICIAN: Alexsander Fernández, PGY4 and Jonas Zuniga, PGY2. OPERATION PERFORMED: Laparoscopic transverse colectomy and primary anastomosis and takedown of splenic flexure as well as placement of left internal jugular chemo port using ultrasound and fluoroscopy guidance. ANESTHESIA TYPE: General and local. ESTIMATED BLOOD LOSS: 50 mL. SPECIMEN REMOVED: Transverse colon mass. COMPLICATIONS: None. INDICATION FOR PROCEDURE: The patient is a pleasant 67-year-old male who presented to the Emergency Room recently for abdominal pain. He was thoroughly evaluated and had a CAT scan that showed the patient had a palpable transverse colon mass. He was seen for consultation and it was recommended the patient have a colonoscopy. Upon colonoscopy, the patient did have a what appeared to be an obstructing colon mass that was tattooed near the splenic flexure. GI was rather unsure of exact location of the mass, so we decided to obtain a barium enema to further evaluate the stricture as well as location. It appeared the patient did have a completely obstructing transverse colon mass just proximal to the splenic flexure. We decided to take the patient for a laparoscopic transverse colectomy with potential possible open and possible ostomy placement. Hematology/Oncology saw the patient and recommended that he have a chemo port placement for postoperative adjuvant chemotherapy. We agreed to place a chemo port after we completed the surgery for [place] [address] OPERATIVE REPORT Name: JENNY RANKIN Room: [address] IN ..#: [id number] Admission: 12/14/17 Attend Phys: Elda Abbott Discharge: Date of : 46 Report #: [id number] patient was consented for both and all details of the procedure were reviewed at length with the patient and his family. They voiced complete understanding and wished to proceed. DESCRIPTION OF PROCEDURE: After the appropriate consents were obtained, the patient was taken to operating room, laid in supine position. He had SCDs placed on his bilateral lower extremities and a safety belt placed across his lap. A footboard was placed at the end of the bed and the patient had all lines placed by Anesthesia. His abdomen as well as his left neck were shaved prior to the start of the procedure. His abdomen was then prepped and draped in a standard sterile fashion. We performed a timeout to correctly identify the patient and procedure. We elected to do the transverse colectomy first before proceeding to our chemo port placement. We decided to start with a supraumbilical Imladys placement. We injected the skin locally using 0.5% Marcaine. Perioperative antibiotics were given prior to incision. We used an 11-blade scalpel to make a supraumbilical incision and then carried subcutaneous tissue down to encounter the anterior abdominal fascia. Once the fascia was encountered, it was grasped and elevated with 2 Breana clamps. The fascia was then incised using electrocautery. We entered the abdominal cavity bluntly using a hemostat. We used a finger to sweep the incision to ensure there were no ayah-incisional adhesions, none were present. We placed 0 Vicryl suture on either side of the fascia to act as stay sutures for Miladys trocar. We then introduced the Miladys into the abdomen and it was insufflated to 15 mmHg. We introduced the camera into the patient's abdomen and he had some adhesions to the left anterior abdominal wall with the omentum, but these were minimal. We then elected to place 2 more right-sided abdominal ports, which were 5-mm ports placed under direct visualization. Using Cliffwood graspers, we started by displacing the omentum superiorly and we had the patient placed in a head down position and tilted to the right. Once we positioned the omentum superiorly, this allowed us to view our transverse colon. There did appear to be a tattoo on the antimesenteric border of the colon, which was just proximal to the splenic flexure. We started by taking down the omentum to the transverse colon using the LigaSure device. This was carried out until all the omentum was removed from the superior aspect of the transverse colon. We did enter the lesser sac and were able to remove the attachments to the stomach as well from the transverse colon. We carried our dissection laterally until we encountered the splenic flexure. The splenic flexure was taken down again using blunt dissection as well as a LigaSure device. We, at which point, elevated our transverse colon and identified the mesentery. The mesentery was scored using electrocautery and we it bluntly as well as using the LigaSure device once again. We made a window bluntly through the mesentery just posterior to the colon until we reached the other side. Once we had a clear Path to the other side of the colon, we were able to ask for our Endo-MARQUES stapler. We elected to use a 60-mm purple load Endo-MARQUES. The stapler was introduced through the supraumbilical port and removed our camera to one of the right-sided lateral abdominal ports. We introduced the stapler into the [place] [address] OPERATIVE REPORT Name: JENNY RANKIN Room: [address] IN [facility].#: [id number] Admission: 12/14/17 Attend Phys: Elda Abbott Discharge: Date of : 46 Report #: [id number] it across the colon just distal to the tattoo with at least 5 cm distal to the colon that appeared to be healthy tissue. We were able to completely transect the colon with small remainder of omentum left that was taken down using the LigaSure device. It was at this point, we were able to elevate our colon and transect our mesentery. We did come across our middle colic artery, which was skeletonized and taken using a 45-mm nguyen load Endo-MARQUES stapler. There did not appear to be any bleeding from the stump of the middle colic artery. At this time, we used the LigaSure device once again to take down the remainder of our mesentery until we were able to free up enough colon. Then, we were pleased with our dissection. We did have to take down the ligament of Treitz during our dissection of the mesentery and we ensured that the jejunum was adequately below our dissection and we played a closed mine to the stomach, which was just posterior to our colon and made sure to stay well away from both these structures. After we were pleased with the dissection and our colon pulled over rather nicely to our distal staple line, we did have to free up some more along the left pericolic gutter along the white line of Toldt to free up the distal end of our transection. It was at this time, we decided to make a transverse incision over the left upper abdomen. We made an incision after placing local anesthetic under the skin and subcutaneous tissue using a 15-blade scalpel. This was carried down through the subcutaneous tissue until we encountered the anterior abdominal wall fascia. The fascia was then incised and the muscle was split with its fibers. We then grasped the peritoneum using hemostats and incised it using Metzenbaum scissors. This allowed us to enter the abdominal cavity. We then placed Malvin wound protector and the abdominal cavity to protect our wound. We had placed 2 Babcocks on either side of the colon prior to allowing the abdomen to desufflate. Using Cliffwood grasper, we were able to grasp the colon and extracted from the abdominal cavity. We started by extracting the proximal end of our dissection, which had our colon mass in it. We were able to extract the mass from the incision that we had made after we extended the incision some along the peritoneum and the fascia. The mass came out with ease after this was performed. We then transected proximally on the mesh using 2 separate 60-mm purple load Endo-MARQUES staplers. It was at this time, we made our common enterotomy between the 2 ends of the transverse colon. We started by identifying our tinea along the transverse colon and grasped it between Allis clamps. The colon was then incised using Metzenbaum scissors and any fluid that was coming from the colon was suctioned cleanly away. There was some bleeding from both the staple lines, which reassured us that we had adequate blood flow to our staple lines. After both enterotomies were made, we then passed the 60-mm Endo-MARQUES stapler once again down either side of the transverse colon along the tinea. This allowed us to make a common enterotomy between our anastomosis. We inspected our anastomosis and prior to firing a stapler, we did ensure that there were no structures that snuck between either sides of the colon. We also placed 2 crotch sutures of 3-0 silk suture on either side of the transverse colon to align our planned anastomosis site. After our common enterotomy was made, we inspected it internally and appeared to be patent and there [place] [address] OPERATIVE REPORT Name: JENNY RANKIN Room: [address] IN .R.#: [id number] Admission: 12/14/17 Attend Phys: Elda Abbott Discharge: Date of : 46 Report #: [id number] bleeding inside the transverse colon. We then decided to close our common enterotomy using suture. A silk suture was ran along the enterotomy in a whipstitch fashion. We then oversewed our suture using Lambert sutures in interrupted fashion. We did test the area for leaks and none were apparent. The anastomosis appeared to be pink and viable at the completion of our closure of our common enterotomy. We did irrigate this area after this was done and suctioned away any free fluid. At this time, we placed a cap on the Malvin port and allowed our anastomosis to return in the intra-abdominal cavity. Using the supraumbilical port site, we reattached insufflation and allowed the patient's abdomen to reinsufflate to 15 mmHg. We again inspected our anastomosis, it did not appear to be bleeding at any point. We then decided to inspect the remainder of the abdomen and did not appear to be bleeding from any sites. The patient did have an obvious liver lesion that was on the left lobe of the liver and a picture was taken of this area. There did not appear any other abnormalities that were seen. We then returned the omentum to its anatomical position and covered our anastomosis with omentum from the inferior as well as the superior aspect of our transverse colon. The stomach appeared to be intact and there did not appear to be any injuries to this area. The spleen remained very viable and pink and we allowed the patient's abdomen to desufflate. At this time, we removed our previously placed two 5-mm right abdominal port sites under direct visualization. There were no obvious bleeding from either of the port sites. We removed the camera after the patient's abdomen was completely desufflated and then removed the Malvin port site as well. We started by closing the peritoneum of the left upper abdomen transverse abdominal incision. This was done in a running fashion using 0 Vicryl suture. We then closed the anterior abdominal wall fascia being very careful not to entrap any of the muscle. This was done using [id number] 0 Vicryl sutures. Once we were pleased with our approximation, we then closed the subcutaneous tissue using a 3-0 Vicryl in inverted interrupted fashion. The skin was closed using a running 4-0 Monocryl suture in a subcuticular fashion. The patient's supraumbilical port site was closed between 2 Breana clamps using 0 Vicryl suture in a [id number] fashion. The subcutaneous tissue here was also closed using a 3-0 Vicryl suture in an inverted interrupted fashion. The skin was closed using inverted interrupted 4-0 Monocryl sutures. The 2 right-sided lateral abdominal port sites were closed using a 4-0 Monocryl suture in an inverted interrupted fashion. Each of the port sites was injected with 0.5% Marcaine for local anesthesia. The patient's abdomen was then cleaned and dried adequately. Mastisol, Steri-Strips, and sterile gauze and Tegaderm Op-Site were placed over each of the incision sites. We then performed our final count and passed off our specimen to be sent to pathology for further evaluation. Our counts were correct x 2 at the end of this procedure. Dr. Manuel was present and scrubbed the entirety of this procedure. It was at this time, [place] [address] OPERATIVE REPORT Name: JENNY RANKIN Room: [address] IN [facility].#: [id number] Admission: 12/14/17 Attend Phys: Elda Abbott Discharge: Date of : 46 Report #: [id number] drapes and proceed with our chemo port placement. This was the completion of our laparoscopic transverse colectomy. <ELECTRONICALLY SIGNED> By: Pippa Manuel DO 12/25/17 1721 1749 1955Cgiovanni Manuel DO /nt
--- NOTE | 2017-12-25 17:21 | OP ---
[address] [address] OPERATIVE REPORT Name: JENNY RANKIN Room: [address] IN M.R.#: [id number] Admission: 12/14/17 Attend Phys: Elda Abbott Discharge: Date of : 46 Report #: [id number] THIS REPORT FOR: //name// CC: Amnolo Kevin Russell DICTATED BY: Dhruv Fernández DO DATE OF SERVICE: 12/21/2017 PREOPERATIVE DIAGNOSES: Transverse colon mass and need for chemo port placement. POSTOPERATIVE DIAGNOSES: Transverse colon mass and need for chemo port placement. SURGEON: Pippa Manuel DO COSURGEONS: Alexsander Fernández, PGY-4 and Jonas Zuniga, PGY-2. OPERATION: Placement of left IJ chemo port using ultrasound and fluoroscopy guidance. ANESTHESIA TYPE: General and local. ESTIMATED BLOOD LOSS: 20 mL. SPECIMENS REMOVED: None. COMPLICATIONS: None. COMMENTS: This is a adequately placed left IJ chemo port using ultrasound and fluoroscopy to confirm our placement. DESCRIPTION OF PROCEDURE: After the appropriate consents were obtained, the patient was taken to the operating room, laid in a supine position. We had previously performed our laparoscopic transverse colectomy. The patient was already sedated and intubated at this time. We had removed all the drapes and changed our gowns and gloves at this time. The patient's left neck was prepped and draped in a standard sterile fashion. A separate timeout was performed to correctly identify the patient and procedure. Perioperative antibiotics were redosed at this time given the length of the time we used to perform the laparoscopic transverse colectomy. We started with some 0.5% Marcaine at the patient's left neck after we identified the left internal jugular vein. The patient was placed in head down position at this time. Then, using a Seldinger needle, we were able to access the vein on a single [place]. [place] [address] OPERATIVE REPORT Name: JENNY RANKIN Room: [address] IN [facility].#: [id number] Admission: 12/14/17 Attend Phys: Elda Abbott Discharge: Date of : 46 Report #: [id number] passed through the needle without any difficulty. At this time, we allowed the C-arm to come in and confirm our placement. The wire appeared to be crossing from the left side of the patient's neck across midline to the right atriocaval junction. We backed the C-arm out. The wire was then secured to the drape using a hemostat and we made our pocket for our chemo port in the patient's left lateral superior chest. We first used local anesthetic to anesthetize the area and then a 15 blade scalpel was used to make our incision. The patient's incision was carried down using electrocautery through the subcutaneous tissue until we encountered our anterior pectoralis fascia. A finger was used to bluntly sweep and make our pocket for chemo port. The chemo port was then placed in position to ensure that pocket was adequately large enough and it was. The chemo port was then placed in a safe position and safe place at this time and removed from the pocket. We then proceeded with placement of our catheter. The dilator was passed over the wire after we made a nicking incision using a 11 blade scalpel at the skin where the wire was going in to the left internal jugular vein. We passed the dilator with ease. It was at this time, we removed the internal sheath along with the wire. We placed a finger over the sheath and then we passed our catheter, which was previously flushed. The catheter was placed with ease and once we were down to around approximately 25-27 cm, we removed the sheath by breaking it away. We then brought in the C-arm once again to confirm the placement of the catheter. The catheter was pulled it back under fluoroscopy guidance until we reached the atriocaval junction. It was at this time, we used our tunneler to pass to our pocket that we had previously made. This was done from the insertion site of the catheter down to our pocket at the infraclavicular region. This was done over the clavicle just beneath the subcutaneous tissue of the skin. This was done with ease as well. The catheter was then attached to the tunneler and passed through the tract that was made previously. A catheter fell into place nicely. We once again confirmed our placement with fluoroscopy guidance and there did not appear to be any kinks in the catheter and it was still sitting well within the atriocaval junction. We then secured our chemo port to the anterior pectoralis fascia using a 3-0 Prolene suture. We did not tie the sutures down yet, we decided then to place our catheter to our chemo port. This was done using the previously provided securing plastic device at the tip of the catheter. This was placed easily on the tip of the chemo port. We then placed a chemo port within the pocket and once again confirmed our placement using fluoroscopy and appeared to be in adequate position once again. We then tied down our Prolene sutures to secure our catheter to our anterior pectoralis fascia. The catheter was then flushed using normal saline and it paul back with good flash of blood and then flushed easily and then after this, we then flushed the catheter with heparin solution. The subcutaneous tissue was reapproximated using 3-0 Vicryl suture in an inverted interrupted fashion. The skin was closed using a running Monocryl suture in a subcuticular fashion. The patient's skin was then dried adequately and cleaned as well. We did close the insertion site at the patient's left neck using a 4-0 Monocryl suture as well. We did take very careful caution not to injure our catheter. Once [place] [address] OPERATIVE REPORT Name: JENNY RANKIN Room: [address] IN [facility].#: [id number] Admission: 12/14/17 Attend Phys: Elda Abbott Discharge: Date of : 46 Report #: [id number] left-sided chest were cleaned and dried adequately, I then placed Mastisol and Steri-Strips along this incision site. We then placed gauze and a sterile Tegaderm, OpSite over this area. The patient tolerated the procedure well and he was allowed to return to supine position. The patient was then allowed to awaken in the operating room, at which point, he was transported to the PACU where he will be allowed to recover further. I then transported to his room. All counts were correct x 2 at the end of this procedure. Dr. Manuel was present and scrubbed for the entirety of this procedure. <ELECTRONICALLY SIGNED> By: Pippa Manuel DO 12/25/17 1721 1800 [id number] Manuel DO /nt
--- NOTE | 2017-12-25 19:06 | NUR ---
PT ALERT AND ORIENTED X4. SATURATION MAINTAINED IN RA. PT STATED PAIN IN HIS ABDOMEN, PRN HYDROCODONE GIVEN. SAT ON BEDSIDE CHAIR FOR MOST OF THE TIME. HAS REDNESS IN THE BUTTOCK AREA WITH TEAR NEAR THE SACRUM, BARRIER CREAM APPLIED. RUNNING AFLUTTER /BBB/PVCS IN MONITOR.
--- NOTE | 2017-12-25 19:45 | NUR ---
THIS RN HAS REVIWED AND AGREES WITH THE CHARTING OF SARINA NEVAREZ
[2017-12-26 00:59] VITALS: BP 143/75
--- NOTE | 2017-12-26 03:15 | NUR ---
met with with patient regarding bladder scan results; nurse explained the results of the bladder scan an estimation of greater than 999 ml of urine in his bladder; nurse stated multiple concerns infection, bladder rupture and even ; nurse requested to strait cath the pt; the pt refused stating "no you aren't doing that. They are kicking me out tomorrow I'll be fine"; nurse expressed this is an acute problem that the dr will not discharge pt until it is resolved; pt still refused; this information was reported to Dr Lizama via [facility]; Orders received to increase flomax to 0.4mg po BID, and consult urology; pt received dose of flomax now; this nurse explained the plan and the consult; pt stated "there wasn't any urine because I didn't drink much and the food is terrible"; the nurse reviewed again the bladder scan results; the patient changed subjects stating "I haven't been walked. The food is terrible and that is the problem"; the nurse validated his complaints and asked what could she do for him now; pt refused walk, food stated "I just want to be left the fuck alone"; pt vitals obtained, call light within reach and reported this to pts ROQUE Reeves.
[2017-12-26 03:57] VITALS: BP 160/88
--- NOTE | 2017-12-26 04:33 | NUR ---
ASSUMED CARE AT 1930, PT IS A&OX4, PT IA TRACING NSR ON THGE MONITOR, ON RA SATTING MID TO HIGH 90'S. PT C/O GAS TROUBLES. PRN MEDICATION ORDERED, WHEN GIVING PT MEDICATION HE SAID HE " NO LONGER NEEDS IT" PRN PAIN MEDICATIONS GIVEN PER MAR. PT HAS FOUR LAP SITES TO ABD, LAP SITES CDI. ABD BINDER NOT IN PLACE. PT HAD NOT VOIDED FOR THIS RN THIS SHIFT, THIS RN BLADDER SCANNED PT, BLADDER SCAN SHOWED GREATER THAN 999MLS PT EDUCATED ON THE NEED TO VOID PT STATES "I DON'T HAVE TO PEE" PT AMBULATED TO THE BR TO VOID, PT ONLY VOIDED 300 MLS. ONCE BACK IN BED BLADDER SCAN WAS COMPLETED AGAIN, PT'S BLADDER STILL READS 999MLS. PT GIVEN EDUCATION ON NEED FOR A CATHETER DUE TO RETENTION AND THE DANGERS OF HIS BLADDER GETTING TOO FULL OF URINE. PT STATES "YOU WILL NOT PUT ANOTHER CATHETER IN ME" "FUCK THIS" "I AM LEAVING IN THE MORNING" "i HAVE BEEN PEEING ALL DAY" THIS RN TOLD PATIENT SHE WOULD PAGE THE SAP BODS DEVELOPER PHYSICIAN, AND HAVE THE ENVIRONMENTAL ADVISOR COME TALK TO HIM. NEW ORDERS RECIEVED. PT STILL REFUSING CATHETER. BED IN LOW POSITION, CALL LIGHT IN REACH, BED ALARM ON, YELLOW ARM BAND AND SOCKS IN PLACE. HOURLY ROUDNING COMPLETED FOR PT REJI.
[2017-12-26 08:31] VITALS: BP 155/75
--- NOTE | 2017-12-26 09:57 | NUR ---
PT REFUSES PLACEMENT OF FORBES OR STRAIGHT CATHETER RELATED TO RETENTION. PT AGREED TO ATTEMPTING TO VOID Q2H AND NOTIFYING NURSE OF OUTPUT. BLADDER SCANS HAVE SHOWED >999ML. PT IRRITABLE THIS AM, IGNORING NURSE AT TIMES. WITH MANY QUESTIONS ABOUT DC AND REHAB CENTERS, REFERRED TO CM.
--- NOTE | 2017-12-26 11:08 | PATH ---
[address] [address] PATHOLOGY RPT PROCEDURE Name: JENNY RANKIN Room: [address] IN M.R.#: [id number] Admission: 12/14/17 Date of : 46 Discharge: Report #: [id number] Path Case #: [id number] [facility] Accession Number: [id number] . 01 Material submitted: . PART A: DUODENAL BIOPSY PART B: SIGMOID COLON MASS BIOPSY . 01 Clinical history: . Anemia, fecal occult blood . 02 Diagnosis: A. Duodenal biopsy: - Normal duodenal/small intestinal mucosa. . B. Sigmoid colon mass biopsy: - TUBULAR ADENOMA WITH FOCAL HIGH-GRADE DYSPLASIA. SEE COMMENT. (ELEUTERIO:masood; 12/20/2017) QMS/12/20/2017 . 02 Comment: Specimen B reviewed with Dr. Michell Cook, who agrees with the diagnosis. Fabi in Dr. Baker's office notified at approximately 0955 on 12/21/2017. 12/20/2017. . (ELEUTERIO:[facility]; 12/20/2017) . 02 Electronically signed: . Elier Ireland MD, Pathologist NPI- [id number] . 01 Gross description: . A. Received in formalin labeled "Jenny Rankin, duodenal biopsy, rule out celiac disease," are 4 segments of zavala soft tissue measuring 1.5 x 0.6 x 0.3 cm in aggregate dimensions and ranging from 0.4 to 0.6 cm in maximum dimension. The specimen is submitted entirely in cassette A1. . B. Received in formalin labeled "Jenny Rankin, sigmoid colon mass biopsy," are 3 segments of zavala soft tissue measuring 0.9 x 0.6 x 0.3 cm in aggregate dimensions and ranging from 0.3 to 0.4 cm in maximum dimension. The specimen is submitted entirely in cassette B1. (TSD; 12/19/2017) TOB/TOB . 02 Pathologist provided ICD-10: D12.5 . 02 [place] [address] PATHOLOGY RPT PROCEDURE Name: JENNY RANKIN Abril Room: [address] IN .R.#: [id number] Admission: 12/14/17 Date of : 46 Discharge: Report #: [id number] Path Case #: [id number] [facility] . [id number], [id number] Specimen Comment: A courtesy copy of this report has been sent to Specimen Comment: [phone], , . Specimen Comment: Report sent to ,DR ALONZO / DR CRUZ Performed at: [address] [facility] [address], [place], [place] [id number] MD Dean Anderson MD Phone: [phone] Performed at: 02 [facility] [address] [address], [place], [place] [id number] MD Elier Ireland MD Phone: [phone]
--- NOTE | 2017-12-26 12:00 | NUR ---
FORBES INSERTED BY UROLOGY. PT TOLERATED WELL. URINE YELLOW AND CLEAR.
[2017-12-26 12:23] VITALS: BP 147/82
--- NOTE | 2017-12-26 13:48 | NUR ---
Isabella here from [facility], they are able to accept if Pt decides on them. and dtr to tour facilities today. contacted CM, [phone], CM faxed referral and asked that facility initiate insurance auth [id number]. Awaiting decision to accept.
[2017-12-26 16:26] VITALS: BP 136/71
--- NOTE | 2017-12-26 17:34 | NUR ---
PT CAN BE IRRITABLE AT TIMES, WILL CUSS OR YELL. FAMILY IN ROOM MOST OF DAY. PT UP IN CHAIR TODAY. SHOWER GIVEN. DENIES C/O PAIN. POOR APPETITE. PT STATES HE DOES NOT LIKE THE FOOD. WILL BRING IN FOOD FOR PATIENT.
--- NOTE | 2017-12-26 18:36 | NUR ---
PT ASKED FOR FLU VACCINE. HAD PREVIOUSLY REFUSED.
[2017-12-26 20:09] VITALS: BP 165/83
[2017-12-27] VITALS (8 sets, daily range): BP systolic 112–146; BP diastolic 56–87
--- NOTE | 2017-12-27 04:52 | NUR ---
PATIENT PROGRESSING TOWARDS GOALS: PATIENT DENIES PAIN AND DISCOMFORT THROUGHOUT SHIFT. PATIENT WAS INTERMITTENTLY FRUSTRATED WITH HIS SLEEP BEING INTERRUPTED. EXPLAINED TO PATIENT THE PURPOSE BEHIND REPOSITIONING Q2H AND VITAL SIGNS Q4H. PATIENT VERBALIZES UNDERSTANDING. CATHETER REMAINS IN PLACE TO DD. PATIENT ANTICIPATING DISCHARGE TODAY. HOURLY ROUNDING OBSERVED. CALL LIGHT WITHIN REACH
--- NOTE | 2017-12-27 11:27 | NUR ---
ASSUMED PT CARE AT 0700 PT IS ALERT AND ORIENTED X 4 PT DENIES PAIN OR SOA ON RA, PT IS UP WITH ASSIST X 1 PT IS IN CHAIR PT IS A FALL RISK CHAIR ALARM IS ON, PT IS SR ON THE MONITOR, PT WANTS FLU SHOT PAGED PHYSICIAN REGARDING FLU SHOT AWAITING CALL BACK, PT MAY DISCHARGE TO REHAB TODAY, PT HAS FORBES WHICH UROLOGY HAS PLACED, WILL CONTINUE TO MONITOR
[2017-12-27] MEDS ORDERED: ADULT LOW DOSE81 MG PO (13:35)
[2017-12-27] MEDS ORDERED: DULCOLAX5 MG PO (13:35)
[2017-12-27] MEDS ORDERED: HYDROCODONE-AP1 EAC6 PO (13:35)
[2017-12-27] MEDS ORDERED: COZAAR 50 MG TA50 M1 PO (13:35)
[2017-12-27] MEDS ORDERED: MILK OF MA2400 MG/10 PO (13:35)
[2017-12-27] MEDS ORDERED: ACETAMINOPHEN325 M1 PO (13:35)
[2017-12-27] MEDS ORDERED: COREG6.25 MG PO (13:35)
--- NOTE | 2017-12-27 15:33 | NUR ---
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 Faxed dc orders. Chart copied. Nurse report number provided, [phone]. and dtr toured facility, in agreement with POC. Updated Pt.
--- NOTE | 2017-12-28 12:51 | CON ---
[address] [address] CONSULTATION Name: JENNY RANKIN Room: [address] IN .R.#: [id number] Admission: 12/14/17 Attend Phys: Elda Abbott Discharge: 12/27/17 Date of : 46 Report #: [id number] THIS REPORT FOR: //name// CC: Manolo Russell DATE OF SERVICE: 12/27/2017 REASON FOR CONSULTATION: Colon cancer. SUBJECTIVE: A 67-year-old male who has a past medical history of coronary artery disease, diabetes mellitus, hypertension, came in because of microcytic anemia, underwent colonoscopy. He was found to have a circumferential fungating mass involving the sigmoid colon. 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 The patient had 12 nodes resected, then came back positive. His final pathology was T4aN2b. The patient had imaging including CT of the chest, which was negative for lung metastases; however, there was vague area low density in the middle segment of the left lobe and possible right lobe measuring 7.3 x 2.1 cm. The patient at this point is being discharged to the shelter facility. He already has a port placed. REVIEW OF SYSTEMS: All systems are reviewed. It was negative except the above. PAST MEDICAL HISTORY: As mentioned above. MEDICATIONS: Per admission list. SOCIAL HISTORY: No smoking. He is an ex-smoker. No alcohol abuse or drug abuse. FAMILY HISTORY: No family history of GI malignancy. ALLERGIES: No known allergies. PHYSICAL EXAMINATION: VITAL SIGNS: Today, temperature 36.8, pulse 82, respiration is 16, blood pressure is 146/78. GENERAL: The patient was sitting in chair, was not in acute distress. LUNGS: Clear to auscultations bilaterally. HEART: Regular rate and rhythm. S1, S2 within normal limits. ABDOMEN: Soft, nontender, nondistended, bowel sounds positive. EXTREMITIES: No edema, no cyanosis[place] [address] CONSULTATION Name: JENNY RANKIN Room: [address]#: [id number] Admission: 12/14/17 Attend Phys: Elda Abbott Discharge: 12/27/17 Date of : 46 Report #: [id number] LABORATORY DATA: Today, WBC 4.9, hemoglobin 7.5, platelets 107. CEA is 10.1. ASSESSMENT AND PLAN: A 67-year-old male, diagnosed with colon cancer, status post resection of circumferential fungating mass at the transverse colon, T4aN2b. The patient had vague low density area in the liver. RECOMMENDATIONS: 1. I would like to obtain a liver MRI. If the patient is going to be discharged today, we will recommend to obtain that as an outpatient. 2. Definitely the patient will need systemic treatment. I would like to obtain NRAS, KRAS, MSI and BRAF status on the surgical specimen. I will follow the patient in the Cancer Clinic for starting systemic therapy. <ELECTRONICALLY SIGNED> By: Freya Alves MD 12/28/17 1251 1537 [id number] Alves MD /nt
--- NOTE | 2018-01-02 09:08 | PATH ---
[address] [address] PATHOLOGY RPT PROCEDURE Name: JENNY RANKIN Room: [address] IN M.R.#: [id number] Admission: 12/14/17 Date of : 46 Discharge: 12/27/17 Report #: [id number] Path Case #: [id number] [facility] Accession Number: [id number] . 01 Material submitted: . TRANSVERSE COLON . 01 Clinical history: . Pneumonitis due to inhalation of food and vomiting, acute respiratory failure with hypoxia Dyspnea, anemia, fecal occult blood positive, elevated troponin . 02 Diagnosis: Transverse colon: - COLONIC ADENOCARCINOMA, EXTRACELLULAR MUCINOUS TYPE, POORLY DIFFERENTIATED,FORMING A MASS MEASURING 6.3 X 3.8 CM, WITH TRANSMURAL INVASION TO INVOLVE INKED, FREE SEROSAL SURFACE. - Proximal, distal and mesenteric surgical margins free of involvement. - At least ten of at least twelve pericolic lymph nodes with metastatic adenocarcinoma (12/28), with at least four fatty tumor deposits (see comment). QTP/12/26/2017 . 02 Comment: Surgical Pathology Cancer Case Summary . COLON AND RECTUM: Resection, Including Transanal Disk Excision of Rectal Neoplasms . Procedure ___ Transverse colectomy . Tumor Site ___ Transverse colon . Tumor Size Greatest dimension: 6.3 x 3.8 cm . Macroscopic Tumor Perforation ___ Not identified . Histologic Type ___ Mucinous adenocarcinoma . Histologic Grade ___ G3: Poorly differentiated [place] [address] PATHOLOGY RPT PROCEDURE Name: JENNY RANKIN Room: [address] IN [facility].#: [id number] Admission: 12/14/17 Date of : 46 Discharge: 12/27/17 Report #: [id number] Path Case #: [id number] ___ Tumor invades the visceral peritoneum (including tumor continuous with serosal surface through area of inflammation) . Margins ___ All margins are uninvolved by invasive carcinoma, high-grade dysplasia, intramucosal adenocarcinoma, and adenoma ____ Margins examined: Proximal, distal and mesenteric . Proximal Margin ___ Uninvolved by invasive carcinoma + Distance of tumor from margin: 2 cm . Distal Margin ___ Uninvolved by invasive carcinoma + Distance of tumor from margin: 3.5 cm. . Mesenteric Margin ___ Uninvolved by invasive carcinoma Distance of tumor from margin: 2.6 cm. . Treatment Effect ___ No known presurgical therapy . Lymphovascular Invasion ___ Not identified . Perineural Invasion ___ Not identified . + Tumor Budding + ___ Number of tumor buds in 1 "hotspot" field (total number in area=0.785 mm2): + ___ Intermediate score (5-9) . + Type of Polyp in Which Invasive Carcinoma Arose + ___ Tubular adenoma . Tumor Deposits ___ Present Specify number of deposits: At least 4 . Regional Lymph Nodes . Number of Lymph Nodes Involved: At least 10 . Number of Lymph Nodes Examined: At least 12 (see comment) . PATHOLOGIC STAGE CLASSIFICATION (pTNM, AJCC 8th Edition) [place] [address] PATHOLOGY RPT PROCEDURE Name: AMSSIELJENNY Abril Room: [address] IN [facility]#: [id number] Admission: 12/14/17 Date of : 46 Discharge: 12/27/17 Report #: [id number] Path Case #: [id number] Primary Tumor (pT) ___ pT4a:Tumor invades through the visceral peritoneum . Regional Lymph Nodes (pN) ___ pN2b:Seven or more regional lymph nodes are positive . The tumor has greater than 90% component of extracellular mucinous type and has an irregular multinodular nature at its invasive front into the pericolic fat such that distinction from additional fatty deposits and/or lymph nodes is uncertain. In addition, several nodules submitted as possible lymph nodes (A10 and A12) contain fatty tumor deposits which could represent replaced lymph nodes. The tumor is seen to directly extend to the inked free serosal surface in A8. Mismatch repair/MSI testing will be performed on A7 and will be the subject of an addendum report. . A8 reviewed [address] Dr[address] Panchito Schwab who agrees with the diagnosis. (ELEUTERIO:tameka 12/26/2017) . 02 Addendum: . MICROSATELLITE INSTABILITY REPORT (MSI): . Mismatch repair (MMR) protein immunohistochemical staining was performed. . Specimen:Formalin fixed paraffin embedded tissue Specimen ID:[id number] Reason for testing:To evaluate for evidence of defective mismatch repair proteins. Method:Immunohistochemical staining for the presence or absence of protein expression of one or more of the following MMR protein markers: MLH1, MSH2, MSH6 and PMS2. Tumor type:Colonic adenocarcinoma, extracellular mucinous type . Results: MLH1 -Preserved MSH2 -Preserved MSH6 -Preserved PMS2 -Preserved . Mismatch Repair Status:MMR Proficient (MMR-P) . Interpretation: . (MMR-P) All four MMR proteins are preserved within tumor cells. This suggests the presence of normal DNA mismatch repair function within the tumor and an observable defect in mismatch repair is not identified. The likelihood that this patient has an inherited germline mutation syndrome due to defective mismatch repair is reduced but not totally eliminated. If the patient has a strong personal or family history of HPNCC/[place] [address] PATHOLOGY RPT PROCEDURE Name: JENNY RANKIN Room: [address] IN M.R.#: [id number] Admission: 12/14/17 Date of : 46 Discharge: 12/27/17 Report #: [id number] Path Case #: [id number] syndrome related cancers (colorectal, endometrial, gastric, ovarian, pancreatic, ureter/renal pelvis, biliary tract, brain, small bowel and Everardo-Eduin syndrome), consider MSI testing by PCR methodology. Suggest clinical correlation and follow up. . These test results are designed for screening purposes only and are useful tools in identifying cancer patients that are more likely to have Grant Syndrome related diagnoses. Tests should be interpreted in the context of clinical findings, family history and laboratory data. Abnormal IHC results for MMR protein expression are not considered diagnostic for Grant Syndrome. . Professional services performed by [facility] at [facility], [facility] [address] [place] [address]. Technical services performed by [facility] at [address] [place] [address], [address], [place] [address]. LBQ/12/27/2017 Addendum Electronically Signed by Elier rIeland MD, Pathologist . 02 Electronically signed: . Elier Ireland MD, Pathologist NPI- [id number] . 01 Gross description: . The specimen is received in formalin, labeled "Jenny Rankin, transverse colon, tattoo-distal, stitch-proximal". Received is an oriented segment of colon measuring 12.2 cm in length and ranging in diameter from 3.2 to 5.5 cm. Both margins are stapled closed, with a suture present at one margin designating this as the proximal aspect. The serosal surface is pink-zavala in appearance. The attached pericolic fat measures up to 3.2 cm in thickness with significant tattooing present. The specimen is opened along the antimesenteric line and placed into formalin admixed with a lymph node enhancement solution for overnight fixation prior to sectioning. . After adequate fixation, further opening of the specimen reveals a circumferential pink-zavala, friable mass measuring 6.3 x 3.8 cm, which is 2.0 cm from the proximal margin, 3.5 cm from the distal margin, and mucin is present within some aspects of the mass. The mass is causing a 95% to total occlusion of the colonic lumen. The opposing serosal and fatty surfaces are inked black. The mesenteric margin is inked blue. Sectioning reveals the mass to grossly extend through the muscularis propria into the underlying soft tissue, displaying a maximum depth of invasion of 2.1 cm. The mass is 2.6 cm from the mesenteric (blue ink) margin, and, although not certain, may involve the serosal surface. The cut surfaces of the mass also display mucinous aspects. There are multiple deposits of mucin within the pericolic fat near the mass, ranging in size from 0.4 to 1.0 cm. The remainder of the colonic mucosa is pale zavala in appearance with normal architectural folds. [place] [address] PATHOLOGY RPT PROCEDURE Name: JENNY RANKIN Room: [address] [place] IN M.R.#: [id number] Admission: 12/14/17 Date of : 46 Discharge: 12/27/17 Report #: [id number] Path Case #: [id number] or lesions are noted grossly. Thorough sectioning and palpation of the attached pericolic fat reveals 13 readily identifiable lymph nodes ranging in size from 0.2 to 1.1 cm in maximum dimensions, one of which appears mucin replaced. The specimen is submitted representatively as follows: . A1 proximal margin, en face A2 distal margin, en face A3 sales representative malt liquors section of mass to show relationship with inked fatty surface (black ink) A4 sales representative malt [employer] section of mass to show relationship with inked serosal surface (black ink) A5-A8 additional sales representative malt [employer] sections of mass A9-A10 sales representative malt [employer] sections of mucin deposits A11 uninvolved mucosa A12-A13 intact lymph nodes A14 one bisected lymph node with tattooing present A15 one bisected mucin replaced lymph node A16-A17 one lymph node, serially sectioned. (CAA; 12/25/2017) QAC/QAC . 02 Pathologist provided ICD-10: C18.4, C77.2 . 02 CPT . 151024, Z84838, B94395 Specimen Comment: A courtesy copy of this report has been sent to Specimen Comment: [phone], . Specimen Comment: Report sent to / DR GASTON Performed at: [address] [facility], [place], [place] [id number] MD Dean Anderson MD Phone: [phone] Performed at: 02 [facility] [address], [place], [place] [id number] MD Elier Ireland MD Phone: [phone]
--- NOTE | 2018-01-14 09:08 | CON ---
[address] [address] CONSULTATION Name: JENNY RANKIN Room: [address] IN M.R.#: [id number] Admission: 12/14/17 Attend Phys: Elda Abbott Discharge: 12/27/17 Date of : 46 Report #: [id number] THIS REPORT FOR: //name// CC: AUGUST physician/PCP Jarret Russell TYPE OF REPORT: Cardiology consultation. HISTORY OF PRESENT ILLNESS: I was asked by Dr. Russell to see this 67-year-old white male in Cardiology consultation for evaluation and treatment of an elevated troponin of 0.07. Further troponins were not drawn. This man came to the Emergency Room because of shortness of breath. He does have a chest x-ray consistent with pneumonia. He does have a cough now also. The chest x-ray shows a right lower lobe infiltrate, possibly pneumonia or aspiration. He did not have chest pain. He did develop shortness of breath that started about a week ago and worsened yesterday. He had weakness and dizziness as well. He has not had fever. He did not have a cough when he initially presented but he is coughing quite a bit now. This man does have a history of coronary artery disease. He had an OR with a stent placement in 1994 in [place], [place]. He additionally has insulin-dependent diabetes mellitus and hypertension. He does have hypercholesterolemia, but he is not on a statin. He may be statin sensitive. His EKG shows normal sinus rhythm with an old inferior infarct. The initial BNP was elevated at 3267. His creatinine was 1.5. Blood sugar is 394. Sodium was 130. He does apparently have chronic hyponatremia. I believe he is followed by Dr. Mehul Loja. He has dyspnea on exertion but not shortness of breath at rest, orthopnea or PND or edema. He has not had syncope. He has not had chest pain. Coronary risk factors include a past history of smoking but he is not currently a smoker. He does have hypercholesterolemia, diabetes and high blood pressure. He does not know his family history other than that he has a son who had a heart transplant. He does not know his mother and father's medical history. He does not know why his son had a heart transplant other than he had a weak heart. He has not had renal disease or peripheral vascular disease or carotid disease, TIAs or CVAs, claudication or open or nonhealing wounds. ALLERGIES: He has no known allergies. MEDICATIONS: Include aspirin 81 mg daily or possibly 325, he is not sure; atenolol 100 mg daily; glargine insulin 60 units daily; losartan/hydrochlorothiazide 100/12.5 mg daily; metformin 500 mg b.i.d.; ranitidine 150 mg b.i.d.; Flomax 0.4 mg daily and Ambien 10 mg at bedtime p.r.n. REVIEW OF SYSTEMS: Positive for weight loss, erectile dysfunction, pneumonia, shortness of breath with exercise, nearly passing out, diabetes, ulcers, blood in the stool, anemia, seasonal allergies, arthritis and wearing glasses. LABORATORY DATA: His hemoglobin was 6.4 when he came in, white count was 6500, [facility] [address] [place] [address] CONSULTATION Name: JENNY RANKIN Room: [address] IN M..#: [id number] Admission: 12/14/17 Attend Phys: Elda Abbott Discharge: 12/27/17 Date of : 46 Report #: [id number] hematocrit was 20.5, MCV was 66.2, MCH 20.5 and MCHC 31. Ferritin was 5. TIBC was 517. His iron was only 9, percent saturation was 2. He has profound iron-deficiency anemia. He is being transfused. FAMILY HISTORY: Unknown to him other than his son as described above. SOCIAL HISTORY: He is , does not smoke or drink or use illegal drugs. PHYSICAL EXAMINATION: GENERAL: He presents as well-developed, well-nourished, pale white male, in no acute distress. VITAL SIGNS: His pulse was 87, blood pressure is 121/84, respirations are 15 and regular and temperature is 98.2. HEENT: His head was atraumatic. Eyes clear. Mucous membranes are moist. NECK: Supple. There is no jugular venous distention or hepatojugular reflux. Thyroid is not enlarged. There is no adenopathy. SKIN: Warm and dry. LUNGS: Clear to auscultation and percussion. HEART: Revealed normal first and second heart sound. There is soft S4. There is no S3. There are no murmurs, rubs, thrills, heaves or gallops. PMI is not displaced. Rhythm is regular and the rate was approximately 80. ABDOMEN: Soft, flat and nontender. No palpable masses. No organomegaly. EXTREMITIES: Reveal no cyanosis, clubbing or edema. NEUROLOGICAL: The patient mentated normally, talked normally and moved all extremities normally. IMPRESSION: 1. Shortness of breath, probably most likely due to pneumonia, some degree of heart failure cannot be excluded. 2. Elevated troponin that is only minimally elevated, probably secondary to his multiple illnesses. 3. Elevated BNP, possibly due to mild congestive heart failure. 4. Pneumonia by chest x-ray. 5. Coronary artery disease. 6. Status post myocardial infarction. 7. Status post coronary stent. 8. Insulin-dependent diabetes mellitus. 9. Essential hypertension. 10. Iron-deficiency anemia. 11. Elevated cholesterol. RECOMMENDATIONS: He should get a fasting lipid profile. Repeat troponins, repeat EKG, a Lexiscan Cardiolite stress test and an echo and repeat BNP and [place] [address] CONSULTATION Name: JENNY RANKIN Room: [address]#: [id number] Admission: 12/14/17 Attend Phys: Elda Abbott Discharge: 12/27/17 Date of : 46 Report #: [id number] Thank you very much for asking me to see the patient. If there are any questions, please feel free to contact me. <ELECTRONICALLY SIGNED> By: Ethan Bloom MD, FACC 01/14/18 [phone] [id number]. Justus Acharya MD, FACC /nt
== END 2017-12-27 17:12 | DRG 981 ==
LOC: M.ERS 19:00 → M.TBA-ER 20:51 → M.2W 20:51
PROVIDERS: Emergency Medicine; Family Medicine; Internal Medicine; Internal Medicine Gastroenterology; Surgery; ADMIT Internal Medicine
DX: C18.4 Malignant neoplasm of transverse colon (principal); J96.01 Acute respiratory failure with hypoxia; J18.1 Lobar pneumonia, unspecified organism; K92.2 Gastrointestinal hemorrhage, unspecified; E87.1 Hypo-osmolality and hyponatremia; I24.9 Acute ischemic heart disease, unspecified; I25.10 Atherosclerotic heart disease of native coronary artery without angina pectoris; I48.91 Unspecified atrial fibrillation; E78.00 Pure hypercholesterolemia, unspecified; I12.9 Hypertensive chronic kidney disease with stage 1 through stage 4 chronic kidney disease, or unspecified chronic kidney disease; N18.3 Chronic kidney disease, stage 3 (moderate); N40.1 Benign prostatic hyperplasia with lower urinary tract symptoms; R33.8 Other retention of urine; R19.7 Diarrhea, unspecified; E11.22 Type 2 diabetes mellitus with diabetic chronic kidney disease; J98.4 Other disorders of lung; K76.9 Liver disease, unspecified; G47.00 Insomnia, unspecified; D50.9 Iron deficiency anemia, unspecified; E11.42 Type 2 diabetes mellitus with diabetic polyneuropathy; I25.2 Old myocardial infarction; Z95.5 Presence of coronary angioplasty implant and graft; Z87.01 Personal history of pneumonia (recurrent); Z79.4 Long term (current) use of insulin; Z79.82 Long term (current) use of aspirin; Z79.899 Other long term (current) drug therapy; Z87.891 Personal history of nicotine dependence; Z80.0 Family history of malignant neoplasm of digestive organs; Z90.49 Acquired absence of other specified parts of digestive tract

== ENCOUNTER → 2018-05-23 | Outpatient (CLI) | payer OTHER ==
[~2018-05-23] MED LIST changes: +ACETAMINOPHEN325 M1 PO; +ADULT LOW DOSE81 MG PO; +ATENOLOL 50MG T50 M1 PO; +COREG6.25 MG PO; +COZAAR 50 MG TA50 M1 PO; +DULCOLAX5 MG PO; +HYDROCODONE-AP1 EAC6 PO; +LYRICA 50 MG50 MG PO; +MILK OF MA2400 MG/10 PO
[2018-05-23 10:10] VITALS: BP 132/74
[2018-05-23 15:52] VITALS: BP 148/75
== END ==
LOC: M.INFUS 04:47 → M.CT 11:30
DX: C18.4 Malignant neoplasm of transverse colon (principal); K76.9 Liver disease, unspecified; N28.1 Cyst of kidney, acquired; L90.5 Scar conditions and fibrosis of skin

== ENCOUNTER → 2018-08-09 | Outpatient (CLI) | payer OTHER | LOC: M.LAB 08-07 08:23 → M.CT 11:28 | DX: C18.4 Malignant neoplasm of transverse colon (principal); J98.11 Atelectasis; J98.4 Other disorders of lung; I25.10 Atherosclerotic heart disease of native coronary artery without angina pectoris; E04.9 Nontoxic goiter, unspecified; R16.1 Splenomegaly, not elsewhere classified; N32.89 Other specified disorders of bladder; M47.816 Spondylosis without myelopathy or radiculopathy, lumbar region; Z98.890 Other specified postprocedural states ==

== ENCOUNTER 2018-09-10 11:36 | Inpatient (IN) | payer OTHER ==
[~2018-09-10] VITALS: Ht 175.3 cm; Wt 89.8 kg
[2018-09-10 11:45] VITALS: BP 175/92
[2018-09-10] MEDS ORDERED: CANCER (11:52)
[2018-09-10] MEDS ORDERED: ZOLOFT25 MG PO (11:53)
[2018-09-10 12:50] LABS: ABSOLUTE BASOPHILS 0.1 thou/uL (0.0-0.2); ABSOLUTE EOSINOPHILS 0.1 thou/uL (0.0-0.7); ABSOLUTE MONOCYTES 0.6 thou/uL (0.0-1.2); ABSOLUTE NEUTROPHILS 4.3 thou/uL (1.6-8.1); BASOPHILS 1.5 %; EOSINOPHILS 1.6 %; HEMATOCRIT 45.1 % (42.0-52.0); HEMOGLOBIN 15.5 gm/dL (14.0-18.0); LYMPHOCYTES 16.4 %; MCH 29.8 pg (26.0-34.0); MCHC 34.4 g/dL (28.0-37.0); MCV 86.5 fL (80.0-100.0); MONOCYTES 9.5 %; MPV 9.9 fl. (7.2-11.1); NUCLEATED RBCS 0 /100WBC; PLATELET COUNT* 142 thou/uL (150-400); RBC 5.21 mil/uL (4.50-6.00); RDW-CV 14.5 % (10.5-14.5)
[2018-09-10 13:02] LABS: APTT 37.5 Seconds (25.0-31.3); PROTIME 10.5 Seconds (9.20-11.50)
[2018-09-10 13:08] LABS: ANION GAP 11 mmol/L (7-16); BUN 20 mg/dL (7-18); CHLORIDE 92 mmol/L (98-107); CO2 28 mmol/L (21-32); CREATININE 1.2 mg/dL (0.6-1.3); GLUCOSE 363 mg/dL (70-99); POTASSIUM 4.3 mmol/L (3.5-5.1); SODIUM 131 mmol/L (136-145)
[2018-09-10 13:42] LABS: ALBUMIN 3.3 g/dL (3.4-5.0); ALKALINE PHOSPHATASE 74 U/L (46-116); NT-PRO BRAIN NAT PEPTIDE 250 pg/mL (<300); SGOT 25 U/L (15-37); SGPT 26 U/L (30-65); TOTAL BILIRUBIN 0.6 mg/dL (<0.1-1.0); TOTAL PROTEIN 8.5 g/dL (6.4-8.2); TROPONIN-I LEVEL <0.06 ng/mL (<0.06)
[2018-09-10 16:21] LABS: URINE BILIRUBIN NEGATIVE (Negative); URINE BLOOD 1+ (Negative); URINE CLARITY CLEAR; URINE COLOR YELLOW; URINE GLUCOSE-RANDOM 2+ (Negative); URINE KETONES NEGATIVE (Negative); URINE LEUKOCYTES-REFLEX NEGATIVE (Negative); URINE NITRITE-REFLEX NEGATIVE (Negative); URINE PROTEIN 2+ (Negative); URINE UROBILINOGEN 0.2 E.U./dl (0.2-1.0)
--- NOTE | 2018-09-10 16:27 | EKG ---
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: : 1950 Requested By: Alexis Krueger Order Number: [id number] MD: Abilio Park Measurements Intervals [place] Rate: 77 P: 44 DE: 154 QRS: 39 QRSD: 105 T: 18 QT: 396 QTc: 449 Interpretive Statements Sinus rhythm Probable left atrial enlargement Inferior infarct, old Baseline wander in lead(s) V4,V5,V6 Compared to ECG 12/23/2017 08:08:11 Atrial fibrillation no longer present Myocardial infarct finding still present Electronically Signed On 09-10-2018 16:27:46 CDT by Abilio Park [email or web address] <ELECTRONICALLY SIGNED> By: Abilio Park MD, [facility] 09/10/18 1627 1229 1229 Abilio Park MD, [facility] /EPI
[2018-09-10 16:48] LABS: MUCUS None Seen strn/LPF (None Seen); SQUAMOUS NONE SEEN /LPF (0-3)
[2018-09-10 16:49] LABS: BACTERIA-REFLEX 1-9 Few /HPF (None Seen); CRYSTALS None Seen /LPF (None Seen); URINE RBC 0-2 Rare /HPF (0-2); URINE WBC-REFLEX None Seen /HPF (0-5)
[2018-09-10 16:50] LABS: HYALINE CASTS 0-3 Few /LPF (None Seen)
[2018-09-10 19:38] VITALS: BP 154/96
--- NOTE | 2018-09-10 19:40 | NUR ---
PT LEAVING AMA DUE TO NO BED AVAILABLE. STATES HE IS TIRED OF WAITING. CLEARING HOUSE CLERK CALLED AND A BED WAS GIVEN TO THE PATIENT HOWEVER THE PATIENT STATES HE JUST WANTS TO GO HOME. PORTACATH DEACCESSED WITH HEPARIN. DRESSING PLACED.
== END 2018-09-10 19:41 | disposition left against medical advice (07) | DRG 149 ==
LOC: M.ERS 11:36 → M.TBA-ER 15:00
PROVIDERS: Family Medicine; ADMIT Internal Medicine
DX: H81.10 Benign paroxysmal vertigo, unspecified ear (principal); C18.9 Malignant neoplasm of colon, unspecified; E11.9 Type 2 diabetes mellitus without complications; I25.10 Atherosclerotic heart disease of native coronary artery without angina pectoris; I10 Essential (primary) hypertension; F32.9 Major depressive disorder, single episode, unspecified; N18.3 Chronic kidney disease, stage 3 (moderate); E11.40 Type 2 diabetes mellitus with diabetic neuropathy, unspecified; M19.90 Unspecified osteoarthritis, unspecified site; I16.0 Hypertensive urgency; Z53.21 Procedure and treatment not carried out due to patient leaving prior to being seen by health care provider; I25.2 Old myocardial infarction; Z82.49 Family history of ischemic heart disease and other diseases of the circulatory system; Z95.5 Presence of coronary angioplasty implant and graft; Z85.038 Personal history of other malignant neoplasm of large intestine

== ENCOUNTER → 2019-01-03 | Outpatient (CLI) | payer OTHER ==
[~2019-01-03] MED LIST changes: +CANCER; +ZOLOFT25 MG PO
--- NOTE | 2019-01-03 15:10 | NUR ---
ORDER FOR IMPLANTABLE PORT ACCESSION OBTAINED FROM DR GRUBBS'S OFFICE PER CATHY RN. LEFT CHEST IMPLANTABLE PORT ACESSED WITH 3/4" NEEDLE EXTENSION SET. UNABLE TO OBTAIN GOOD BRISK BLOOD RETURN BUT FLUSHES FREELY, PATIENT TASTED THE SALINE AND NO PAIN OR SWELLING AROUND PORT SITE. COVERED WITH STERILE DRESSING, REPORT GIVEN TO CT RADIOLOGY STAFF. CARLIE (STORE SALES MANAGER) NOTIFIED TO PACK LINE WHEN DEACCESSED PER ORDER.
== END ==
LOC: M.CT 12-19 14:00
DX: C18.4 Malignant neoplasm of transverse colon (principal); N28.1 Cyst of kidney, acquired; R91.8 Other nonspecific abnormal finding of lung field